=== PATIENT | male | born 1955 | race Caucasian/White ===

== ENCOUNTER 2022-09-27 06:50 | Day surgery (SDC) | payer MEDICARE ==
[~2022-09-27 06:50] MED LIST: LACTATED RINGERS 1,000 ML IV SCH; LIDOCAINE 1% (10MG/ML) FOR IV START INTRADERMA PRN
[2022-09-27 07:09] VITALS: TEMP 97.6
[2022-09-27] MEDS ORDERED: LIDOCAINE 2% INJ 20 MG/ML (2 ML VIAL) ONE (07:33)
[2022-09-27] MEDS ORDERED: PROPOFOL 10 MG/ML 20 ML VIAL IV ONE (07:33)
--- NOTE | 2022-09-27 08:09 | P.PCN ---
Date of Procedure: 09/27/22 Procedure(s) Performed: Brief history: Patient is a pleasant 67-year-old white male scheduled for an elective upper endoscopy as well as colonoscopy as a part of evaluation of persistent history of GERD and Hemoccult-positive stool Procedure performed: Esophagogastroduodenoscopy with biopsy Colonoscopy Preoperative diagnosis: Long-standing history of GERD Hemoccult-positive stool Anesthesia: MAC Procedure: After informed consent was obtained from the patient was brought into the endoscopy unit and IV sedation was administered by anesthesia under continuous monitoring. Initially upper endoscopy was done. The Olympus GF 160 video endoscope was inserted inserted into the mouth and esophagus intubated without any difficulty and was gradually advanced into the stomach and duodenum and carefully examined. The bulb and second part of the duodenum appeared normal. The scope was then withdrawn into the stomach adequately insufflated with air and upon careful examination the antrum had linear areas of erythema consistent with antral gastritis and biopsies were done from this area. Mucosa ofdy, cardia and fundus appeared normal. The scope was then withdrawn into the esophagus. moderate size hiatal hernia noted. The GE junction was located at 35 cm to the incisors. It appeared regular with no erythema erosions or ulcerations. Rest of the esophagus appeared normal. Patient tolerated the procedure well. At this time the patient continued to remain sedation. Initial digital rectal examination was normal. Olympus CF 160 video colonoscope was then inserted into the rectum and gradually advanced to the cecum without any difficulty. Careful examination was performed as the scope was gradually being withdrawn. The prep was excellent. The cecum, ascending colon, transverse colon, descending colon, sigmoid colon and rectum appeared normal. At her sigmoid diverticulosis. Retroflexion was performed in the rectum and no lesions were noted. Patient tolerated the procedure well. Impression: 1. Upper endoscopy revealed moderate size hiatal hernia and mild antral gastrit is 2. Colonoscopy revealed scattered sigmoid diverticulosis but no evidence of colorectal Recommendations: Findings of this examination were discussed with the patient as well as his family. He was advised to follow with the biopsy results. Continue with omeprazole 20 mg daily and follow antireflux measures. Recommend repeat screening colonoscopy in 10 years.
[2022-09-27 08:31] VITALS: BP 141/90; PULSE 75; RESP 16
== END 2022-09-27 08:47 | disposition home or self-care (01) ==
LOC: ORWHC2ENDO 06:50
PROVIDERS: ATTEND Internal Medicine Gastroenterology
DX: K29.50 Unspecified chronic gastritis without bleeding (principal); K57.30 Diverticulosis of large intestine without perforation or abscess without bleeding; K44.9 Diaphragmatic hernia without obstruction or gangrene; I10 Essential (primary) hypertension; K21.9 Gastro-esophageal reflux disease without esophagitis; Z88.0 Allergy status to penicillin; Z88.8 Allergy status to other drugs, medicaments and biological substances; Z79.899 Other long term (current) drug therapy
CPT/HCPCS: 88305; 43239; J2704; J2001; G0121; 45378

== ENCOUNTER 2023-03-05 13:52 | Inpatient (IN) | payer MEDICARE ==
--- NOTE | 2023-03-05 15:02 | ED ---
General Adult HPI - General Source: patient, RN notes reviewed, old records reviewed Mode of arrival: wheelchair Limitations: no limitations <Wilton Cool - Last Filed: 03/05/23 16:01> - History of Present Illness -: hour(s) Location: chest Radiation: non-radiation Severity scale (1-10): 4 Quality: aching Consistency: constant Improves with: none Worsens with: none Associated Symptoms: confusion, diaphoresis, shortness of breath, syncope, weakness Treatments Prior to Arrival: none <Johann De Jesus - Last Filed: 03/13/23 00:40> - General Chief complaint: Shortness of Breath Stated complaint: Enlarge Heart,sent from Urgent Care Time Seen by Provider: 03/05/23 13:58 - History of Present Illness Initial comments: Patient is a 67-year-old male who presents emergency department over concern for dyspnea. Patient is been having progressively worsening shortness of breath over the last week. Has a history of microcytic anemia. Denies any cardiac history. Has a history of hypertension. Denies any chest pain, abdominal pain, nausea, vomiting, fevers. Has no urinary complaints. Denies any hematemesis. Denies any bleeding of any sorts. States he has been having normal bowel movements at a light brown in color with no blood or melena. No dark black tarry stools. Endorse's mild increased lower extremity edema. Patient chronically sleeps somewhat sitting up at an angle without any acute change. D enies PND. Is not on blood thinners. No recent long distance travel. No significant cough. No other acute complaints at this time. Presents for evaluation after originally presenting to urgent care. Was told he has an enlarged cardiac silhouette. (Wilton Cool) 67 male to the emergency department for evaluation of exertional dyspnea. Patient still with significant shortness of breath is minimal activity here in the ER (Johann De Jesus) - Related Data Home Medications Medication Instructions Recorded Confirmed Valsartan/Hydrochlorothiazide 1 tab PO DAILY 09/26/22 03/05/23 [Valsartan-Hctz 320-25 mg Tab] Omeprazole 20 mg PO DAILY@1600 03/05/23 03/05/23 Previous Rx's Medication Instructions Recorded Colchicine [Colcrys] 0.6 mg PO BID #60 each 03/10/23 Thiamine [Vitamin B-1] 100 mg PO DAILY #30 tablet 03/10/23 Allergies Allergy/AdvReac Type Severity Reaction Status Date / Time Penicillins Allergy rash and Verified 03/07/23 13:22 swelling Tetracyclines Allergy rash and Verified 03/07/23 13:22 swelling Review of Systems ROS Other: All systems not noted in ROS Statement are negative. <Wilton Cool - Last Filed: 03/05/23 16:01> ROS Other: All systems not noted in ROS Statement are negative. <Johann De Jesus - Last Filed: 03/13/23 00:40> ROS Statement: Those systems with pertinent positive or pertinent negative responses have been documented in the HPI. Review of Systems: CONST: Denies fever EYES: Denies blurry vision ENT: Denies nasal congestion C/V: Denies Chest pain RESP: Endorses dyspnea GI: Denies abdominal pain : Denies dysuria SKIN: Denies rash. MSK: Denies joint pain. NEURO: Denies headache (Wilton Cool) Past Medical History Past Medical History: GERD/Reflux, Hypertension Additional Past Medical History / Comment(s): recent SOB with exertion. recent stress test will see [facility] medical services coordinator. long standing raspy voice History of Any Multi-Drug Resistant Organisms: None Reported Additional Past Surgical History / Comment(s): colonoscopy, rt rotator cuff 2015 surgery. oral surgery Past Anesthesia/Blood Transfusion Reactions: No Reported Reaction Past Psychological History: No Psychological Hx Reported Smoking Status: Former smoker Past Alcohol Use History: Occasional Past Drug Use History: None Reported - Past Family History Father Family Medical History: Cancer Additional Family Medical History / Comment(s): throat cancer <Wilton Cool - Last Filed: 03/05/23 16:01> - Past Family History Mother Additional Family Medical History / Comment(s): "Leaky valve" <Johann De Jesus - Last Filed: 03/13/23 00:40> General Exam Limitations: no limitations <Wilton Cool - Last Filed: 03/05/23 16:01> General appearance: alert, in no apparent distress, anxious Head exam: Present: atraumatic, normocephalic, normal inspection Eye exam: Present: normal appearance, PERRL, EOMI. Absent: scleral icterus, conjunctival injection, periorbital swelling ENT exam: Present: normal exam, mucous membranes moist Neck exam: Present: normal inspection. Absent: tenderness, meningismus, lymphadenopathy Respiratory exam: Present: normal lung sounds bilaterally. Absent: respiratory distress, wheezes, rales, rhonchi, stridor Cardiovascular Exam: Present: regular rate, normal rhythm, normal heart sounds. Absent: systolic murmur, diastolic murmur, rubs, gallop, clicks GI/Abdominal exam: Present: soft, normal bowel sounds. Absent: distended, tenderness, guarding, rebound, rigid Extremities exam: Present: normal inspection, full ROM, normal capillary refill. Absent: tenderness, pedal edema, joint swelling, calf tenderness Back exam: Present: normal inspection Neurological exam: Present: alert, oriented X3, CN II-XII intact Psychiatric exam: Present: normal affect, normal mood Skin exam: Present: warm, dry, intact, normal color. Absent: rash <Johann De Jesus - Last Filed: 03/13/23 00:40> - General Exam Comments Initial Comments: General: Appears in no acute distress. HEAD: Normal with no signs of head trauma. EYES: PERRLA, EOMI, conjunctiva normal, no discharge. Pupils are 3 mm equal bilaterally. ENT: Hearing grossly intact, normal oropharynx. RESPIRATORY: Clear breath sounds bilaterally. No wheezes, rales, or rhonchi. C/V: Regular rate and rhythm. S1 and S2 auscultated, mild symmetrical bilateral lower extremity pitting edema, peripheral pulses 2+ and intact throughout ABD: Abd is soft, nontender, nondistended EXT: Normal range of motion, no obvious deformity SKIN: No rashes or lesions observed on exposed skin. Somewhat pale. NEURO: Alert and oriented 4. (Wilton Cool) Course <Johann De Jesus - Last Filed: 03/13/23 00:40> Vital Signs 03/05/23 03/05/23 03/05/23 13:56 14:22 16:32 Temperature 97.6 F Pulse Rate 77 76 Respiratory 18 20 18 Rate Blood Pressure 126/80 146/91 O2 Sat by Pulse 98 96 Oximetry 03/05/23 03/05/23 17:36 18:17 Temperature 98.2 F Pulse Rate 78 Respiratory 18 Rate Blood Pressure 156/92 O2 Sat by Pulse Oximetry - Reevaluation(s) Reevaluation #1: 03/05/23 17:51 Medical record is reviewed (Johann De Jesus) Reevaluation #2: 03/05/23 17:51 Patient symptoms unchanged here in the ER still short of breath even when going to the bathroom (Johann De Jesus) Reevaluation #3: 03/05/23 17:51 Results and questions answered (Johann De Jesus) Reevaluation #4: Differential Dyspnea: Coronary syndrome, arrhythmia, tamponade, asthma, COPD, pulmonary embolism, pneumonia, pneumothorax, pulmonary effusion, anaphylaxis, diabetic ketoacidosis, flailed chest, pulmonary contusion, diaphragmatic rupture, anemia, neuromuscular, this is not meant to be an all-inclusive list. Differential Chest Pain: Stable Angina, Unstable Angina, STEMI, NSTEMI Aortic Dissection, Pneumothorax, M usculoskeletal, Esophageal Spasm GERD, Cholecystitis, Pancreatitis, Zoster, this is not meant to be an all-inclusive list. (Johann De Jesus) - Consultations Consultation #1: Spoke with sound who agrees to admit this patient (Johann De Jesus) Medical Decision Making - Lab Data Result diagrams: 03/05/23 14:50 03/05/23 14:50 - EKG Data -: EKG Interpreted by Mo <Wilton Cool - Last Filed: 03/05/23 16:01> - Lab Data Result diagrams: 03/09/23 08:11 03/08/23 08:13 - EKG Data -: EKG Interpreted by Me - Radiology Data Radiology results: report reviewed (CT angiogram chest to today which is he is positive for pleural effusion and pericardial effusion interpreted by me), image reviewed <Johann De Jesus - Last Filed: 03/13/23 00:40> - Medical Decision Making Was pt. sent in by a medical professional or institution (, PA, TRANSFORMATION COACH, urgent care, hospital, or half-way...) When possible be specific @ -No Did you speak to anyone other than the patient for history (EMS, parent, family, police, friend...)? What history was obtained from this source @ -No Did you review nursing and triage notes (agree or disagree)? Why? @ -I reviewed and agree with nursing and triage notes Were old charts reviewed (outside hosp., previous admission, EMS record, old EKG, old radiological studies, urgent care reports/EKG's, half-way records)? Report findings @ -No old charts for review Differential Diagnosis (chest pain, altered mental status, abdominal pain women, abdominal pain men, vaginal bleeding, weakness, fever, dyspnea, syncope, headache, dizziness, GI bleed, back pain, seizure, CVA, palpatations, mental health, musculoskeletal)? @ -Differential Dyspnea: Coronary syndrome, arrhythmia, tamponade, asthma, COPD, pulmonary embolism, pneumonia, pneumothorax, pulmonary effusion, anaphylaxis, diabetic ketoacidosis, flailed chest, pulmonary contusion, diaphragmatic rupture, anemia, neuromuscular, this is not meant to be an all-inclusive list. EKG interpreted by me (3pts min.). @ -As above X-rays interpreted by me (1pt min.). @ -Chest x-ray reveals cardiomegaly CT interpreted by me (1pt min.). @ -pending U/S interpreted by me (1pt. min.). @ -None done What testing was considered but not performed or refused? (CT, X-rays, U/S, labs)? Why? @ -None What meds were considered but not given or refused? Why? @ -None Did you discuss the management of the patient with other professionals (professionals i.e. , PA, TRANSFORMATION COACH, lab, RT, psych nurse, clinical social worker, [facility] shift lead, teacher, flight communications officer, disability case manager)? Give summary @ -No Was smoking cessation discussed for >3mins.? @ -No Was critical care preformed (if so, how long)? @ -No Were there social determinants of health that impacted care today? How? (Homelessness, low income, unemployed, alcoholism, drug addiction, transportation, low edu. Level, literacy, decrease access to med. care, usp, rehab)? @ -No Was there de-escalation of care discussed even if they declined (Discuss DNR or withdrawal of care, Hospice)? DNR status @ -No What co-morbidities impacted this encounter? (DM, HTN, Smoking, COPD, CAD, Cancer, CVA, ARF, Chemo, Hep., AIDS, mental health diagnosis, sleep apnea, morbid obesity)? @ -None Was patient admitted / discharged? Hospital course, mention meds given and route, prescriptions, significant lab abnormalities, going to OR and other pertinent info. @ -Based on patient's presentation and physical exam, I'm concerned for possible cardiopulmonary etiology for his current symptoms. We will obtain cardio pulmonary labs. Chest x-ray, EKG as well. Patient was in agreement this plan. Has a history of anemia and he does appear somewhat pale. Unknown if this is acute. No evidence of GI bleeding at this time. He is not on blood thinners. Vital signs within acceptable limits at rest. No significant dyspnea at rest. Patient was in agreement this plan. EKG shows no signs of acute ischemia. Chest x-ray shows no significant acute cardiopulmonary process other than mild cardiomegaly.Patient's d-dimer returned elevated. Patient also has anemia with no no previous laboratory studies for comparison. Patient uncertain what his previous hemoglobin level was. His no GI bleeding complaints at this time. Troponin is indeterminate. BNP is within acceptable limits for his age. Remainder the labs within acceptable limits. I updated the patient. He is resting comfortably. We will obtain CT PE. He was in agreement this plan. Patient signed out to Dr. De Jesus Pending results of imaging. Undiagnosed new problem with uncertain prognosis? @ -No Drug Therapy requiring intensive monitoring for toxicity (Heparin, Nitro, Insulin, Cardizem)? @ -No Were any procedures done? @ -No (Wilton Cool) 67 male ER today who complains of With exertional dyspnea. Patient states he recently had a stress test with echocardiogram since then has had increasingly developing exertional dyspnea. Patient is found on computed tomography scan to have pleural effusion left with pericardial effusion moderate. Troponin leak. Patient will be admitted for cardiology evaluation and repeat ECHO (Johann De Jesus) - Lab Data Lab Results 03/05/23 03/05/23 03/05/23 Range/Units 14:50 14:50 14:50 WBC 6.7 (3.8-10.6) k/uL RBC 3.05 L (4.30-5.90) m/uL Hgb 8.9 L (13.0-17.5) gm/dL Hct 27.4 L (39.0-53.0) % MCV 89.8 (80.0-100.0) fL MCH 29.3 (25.0-35.0) pg MCHC 32.6 (31.0-37.0) g/dL RDW 14.3 (11.5-15.5) % Plt Count 361 (150-450) k/uL MPV 7.8 Neutrophils % 72 % Lymphocytes % 15 % Monocytes % 7 % Eosinophils % 4 % Basophils % 0 % Neutrophils # 4.8 (1.3-7.7) k/uL Lymphocytes # 1.0 (1.0-4.8) k/uL Monocytes # 0.4 (0-1.0) k/uL Eosinophils # 0.3 (0-0.7) k/uL Basophils # 0.0 (0-0.2) k/uL Hypochromasia Slight PT 12.5 (10.0-12.5) sec INR 1.2 H (<1.2) APTT 24.0 (22.0-30.0) sec D-Dimer 3.25 H (<0.60) mg/L FEU Sodium 135 L (137-145) mmol/L Potassium 3.8 (3.5-5.1) mmol/L Chloride 99 (98-107) mmol/L Carbon Dioxide 26 (22-30) mmol/L Anion Gap 10 mmol/L BUN 20 (9-20) mg/dL Creatinine 0.92 (0.66-1.25) mg/dL Est GFR (CKD-EPI)AfAm >90 (>60 ml/min/1.73 sqM) Est GFR (CKD-EPI)NonAf 87 (>60 ml/min/1.73 sqM) Glucose 108 H (74-99) mg/dL Calcium 8.9 (8.4-10.2) mg/dL Magnesium 2.3 (1.6-2.3) mg/dL Total Bilirubin 0.7 (0.2-1.3) mg/dL AST 24 (17-59) U/L ALT 25 (4-49) U/L Alkaline Phosphatase 63 (38-126) U/L Troponin I (0.000-0.034) ng/mL NT-Pro-B Natriuret Pep 399 pg/mL Total Protein 6.1 L (6.3-8.2) g/dL Albumin 3.4 L (3.5-5.0) g/dL Urine Color Urine Appearance (Clear) Urine pH (5.0-8.0) Ur Specific [place] (1.001-1.035) Urine Protein (Negative) Urine Glucose (UA) (Negative) Urine Ketones (Negative) Urine Blood (Negative) Urine Nitrite (Negative) Urine Bilirubin (Negative) Urine Urobilinogen (<2.0) mg/dL Ur Leukocyte Esterase (Negative) Influenza Type A (PCR) (Not Detectd) Influenza Type B (PCR) (Not Detectd) RSV (PCR) (Not Detectd) SARS-CoV-2 (PCR) (Not Detectd) 03/05/23 03/05/23 03/05/23 Range/Units 14:50 14:50 17:36 WBC (3.8-10.6) k/uL RBC (4.30-5.90) m/uL Hgb (13.0-17.5) gm/dL Hct (39.0-53.0) % MCV (80.0-100.0) fL MCH (25.0-35.0) pg MCHC (31.0-37.0) g/dL RDW (11.5-15.5) % Plt Count (150-450) k/uL MPV Neutrophils % % Lymphocytes % % Monocytes % % Eosinophils % % Basophils % % Neutrophils # (1.3-7.7) k/uL Lymphocytes # (1.0-4.8) k/uL Monocytes # (0-1.0) k/uL Eosinophils # (0-0.7) k/uL Basophils # (0-0.2) k/uL Hypochromasia PT (10.0-12.5) sec INR (<1.2) APTT (22.0-30.0) sec D-Dimer (<0.60) mg/L FEU Sodium (137-145) mmol/L Potassium (3.5-5.1) mmol/L Chloride (98-107) mmol/L Carbon Dioxide (22-30) mmol/L Anion Gap mmol/L BUN (9-20) mg/dL Creatinine (0.66-1.25) mg/dL Est GFR (CKD-EPI)AfAm (>60 ml/min/1.73 sqM) Est GFR (CKD-EPI)NonAf (>60 ml/min/1.73 sqM) Glucose (74-99) mg/dL Calcium (8.4-10.2) mg/dL Magnesium (1.6-2.3) mg/dL Total Bilirubin (0.2-1.3) mg/dL AST (17-59) U/L ALT (4-49) U/L Alkaline Phosphatase (38-126) U/L Troponin I 0.017 (0.000-0.034) ng/mL NT-Pro-B Natriuret Pep pg/mL Total Protein (6.3-8.2) g/dL Albumin (3.5-5.0) g/dL Urine Color Light Yellow Urine Appearance Clear (Clear) Urine pH 6.0 (5.0-8.0) Ur Specific [place] >1.050 H (1.001-1.035) Urine Protein Negative (Negative) Urine Glucose (UA) Negative (Negative) Urine Ketones Negative (Negative) Urine Blood Negative (Negative) Urine Nitrite Negative (Negative) Urine Bilirubin Negative (Negative) Urine Urobilinogen <2.0 (<2.0) mg/dL Ur Leukocyte Esterase Negative (Negative) Influenza Type A (PCR) Not Detected (Not Detectd) Influenza Type B (PCR) Not Detected (Not Detectd) RSV (PCR) Not Detected (Not Detectd) SARS-CoV-2 (PCR) Not Detected (Not Detectd) - EKG Data EKG Comments: 12-lead Electrocardiogram Interpretation Note EKG was reviewed and interpreted by myself. 12-lead ECG performed at 1455 is interpreted by me as revealing normal sinus rhythm at a rate of 71 beats per minute. English is normal. IL interval is 197 ms, QRS duration is 97 ms, QTc is 437 ms. Patient does have T-wave inversions in leads V2, V3 and somewhat in V4. R wave progression across the precordium was satisfactory. No prior EKGs for comparison. (Wilton Cool) Critical Care Time Critical Care Time: Yes Total Critical Care Time: 31 <Johann De Jesus - Last Filed: 03/13/23 00:40> Disposition <Wilton Cool - Last Filed: 03/05/23 16:01> Is patient prescribed a controlled substance at d/c from ED?: No Time of Disposition: 17:50 <Johann De Jesus - Last Filed: 03/13/23 00:40> Clinical Impression: Pleural effusion, left, Pericardial effusion, Exertional dyspnea Disposition: ADMITTED IP TO THIS HOSP Condition: Stable
--- NOTE | 2023-03-05 15:16 | XR ---
EXAMINATION TYPE: XR chest 2V DATE OF EXAM: 03/05/2023 3:06 PM CLINICAL INDICATION:Male, 67 years old with history of difficulty breathing. COMPARISON: None. TECHNIQUE: XR chest 2V Frontal and lateral views of the chest. FINDINGS: Lungs/Pleura: Trace left pleural effusion is identified. No evidence of pneumothorax. Pulmonary vascularity: Unremarkable. Heart/mediastinum: Mild cardiomegaly Musculoskeletal: No acute osseous pathology. IMPRESSION: Mild cardiomegaly with trace left pleural effusion.
[2023-03-05 15:22] LABS: Basophils % (A) 0 %; Eosinophils # (A) 0.3 k/uL (0-0.7); Eosinophils % (A) 4 %; HCT 27.4 % (39.0-53.0); HGB 8.9 gm/dL (13.0-17.5); Hypochromasia Slight; Lymphocytes % (A) 15 %; MCH 29.3 pg (25.0-35.0); MCHC 32.6 g/dL (31.0-37.0); MCV 89.8 fL (80.0-100.0); Mean Platelet Volume 7.8; Monocytes # (A) 0.4 k/uL (0-1.0); Monocytes % (A) 7 %; Neutrophils # (A) 4.8 k/uL (1.3-7.7); Neutrophils % (A) 72 %; Platelet Count 361 k/uL (150-450); RBC 3.05 m/uL (4.30-5.90); RDW 14.3 % (11.5-15.5); WBC 6.7 k/uL (3.8-10.6)
[2023-03-05 15:23] LABS: ALT 25 U/L (4-49); AST 24 U/L (17-59); African American GFR (CKD) >90 (>60 ml/min/1.73 sqM); Albumin 3.4 g/dL (3.5-5.0); Alkaline Phosphatase 63 U/L (38-126); Anion Gap 10 mmol/L; Blood Urea Nitrogen 20 mg/dL (9-20); Calcium 8.9 mg/dL (8.4-10.2); Carbon Dioxide 26 mmol/L (22-30); Chloride 99 mmol/L (98-107); Glucose 108 mg/dL (74-99); Magnesium 2.3 mg/dL (1.6-2.3); Non-African American GFR(CKD) 87 (>60 ml/min/1.73 sqM); Potassium 3.8 mmol/L (3.5-5.1); Sodium 135 mmol/L (137-145); Total Bilirubin 0.7 mg/dL (0.2-1.3); Total Protein 6.1 g/dL (6.3-8.2)
[2023-03-05 15:31] LABS: NT-Pro-B-Type Natriuretic Pept 399 pg/mL
[2023-03-05 15:33] LABS: INR 1.2 (<1.2); Prothrombin Time 12.5 sec (10.0-12.5)
--- NOTE | 2023-03-05 16:37 | CT ---
EXAMINATION TYPE: CT chest angio for PE CT DLP: 549.1 mGycm, Automated exposure control for dose reduction was used. DATE OF EXAM: 03/05/2023 4:06 PM COMPARISON: Chest radiograph from same day. Multiple CTs of the chest with most recent on . CLINICAL INDICATION:Male, 67 years old with history of elevated dimer, eval for PE; SOB on exertion, high d-dimer. TECHNIQUE/CONTRAST: CTA scan of the thorax is performed with IV Contrast, patient injected with 100 cc mL of Isovue 370, MIP images are created and reviewed these are created on a separate workstation.. FINDINGS: Pulmonary Artery: There is no evidence for a filling defect within the pulmonary vasculature to sugge st acute pulmonary embolism. The pulmonary artery is of normal size. Lungs/Pleura: Trace left pleural effusion. No evidence of pneumothorax Airway: Patent Heart: Moderate-sized pericardial effusion. Vasculature: No evidence of aortic aneurysm. Mediastinum: No gross evidence of adenopathy. Musculoskeletal: Mild degenerative disc disease changes are present throughout the thoracolumbar spin e. Soft Tissues: Unremarkable. Lower neck: No significant findings. Upper Abdomen: Small hiatal hernia.. IMPRESSION: 1. No evidence of pulmonary embolism. 2. Moderate-sized pericardial effusion. 3. Trace left pleural effusion.
[2023-03-05] MEDS ORDERED: NALOXONE 0.4 MG/ML 1 ML VIAL IV PRN (17:49)
[2023-03-05] MEDS ORDERED: MORPHINE SULFATE 4 MG/ML SYRINGE IV PRN (17:49)
[2023-03-05] MEDS ORDERED: ONDANSETRON 4 MG/2 ML VIAL IVP PRN (17:49)
[2023-03-05 18:03] LABS: Appearance,Urine Clear (Clear); Bilirubin,Urine Negative (Negative); Blood,Urine Negative (Negative); Color,Urine Light Yellow; Glucose,Urine (UA) Negative (Negative); Ketones,Urine Negative (Negative); Leukocyte Esterase,Urine Negative (Negative); Nitrite,Urine Negative (Negative); Protein,Urine Negative (Negative); Urobilinogen,Urine <2.0 mg/dL (<2.0)
[2023-03-05 18:43] LABS: Specific Gravity,Urine >1.050 (1.001-1.035)
[2023-03-05] MEDS: SODIUM CHLORIDE 0.9% 1,000 ML IV SCH (23:54)
--- NOTE | 2023-03-06 04:57 | P.HPIM ---
History of Present Illness H&P Date: 03/05/23 Chief Complaint: shortness of breath 67 year old male with hypertension patient coming in for progressive shortness of breath over the past 1 week. he reports exertional dyspnea which is new to him with moderate exertion. he denies any recent URI , or cardiac history . initially he thought he has a cold, but denies any associated fever , chills, sore throat, runny nose, or cough. he denies any chest pain , fever, chills. abd pain , nausea or vomiting. he denies orthopnea , as he does not normally sleep flat , denies PNDs. denies leg edema . patient denies cardiac history , and he has had EKG and stress test in past which were normal . he started feeling better monday, but then his symptoms returned on and monday, he went to an urgent care, who did an CXR and found to have enlarged heart and they sent him to the ED> he denies any history of blood clots, recent travel or hospital stay . he is not on aspirin or blood thinners he denies tobacco smoking, illicit drugs or heavy alcohol review of systems Pertinent positives as noted in HPI. All other systems were reviewed and are negative on exam Constitutional: No acute distress, conversant, pleasant Eyes: Anicteric sclerae, moist conjunctiva, Pupils equal round reactive to light ENMT: NC/AT Oropharynx clear, no erythema, or exudates Neck: Supple, no masses, or JVD No carotid bruits No thyromegaly Lungs: Clear to auscultation Clear to percussion Normal respiratory effort, no accessory muscle use Cardiovascular: Heart regular in rate and rhythm, No murmurs, gallops, or rubs No peripheral edema Abdominal: Soft Nontender, no guarding, rebound or rigidity Abdomen moving with respiration Normoactive bowel sounds No hepatomegaly, No splenomegaly No palpable mass No abdominal wall hernia noted Skin: Normal temperature, tone, texture, turgor No induration No subcutaneous nodules No rash, lesions No ulcers Extremities: No digital cyanosis No clubbing Pedal pulses intact and symmetrical Radial pulses intact and symmetrical No calf tenderness Psychiatric: Alert and oriented to person, place and time Appropriate affect fair judgement Neuro Muscles Strength 5/5 in all 4 extremities Sensation to light touch grossly present throughout Cranial nerves II-XII grossly intact Lymphatics: no palpable cervical or supraclavicular lymph nodes assessment and plan 67 year old male with hypertension , presenting for exertional dyspnea , new onset, no cardiac history , I discussed the case with ED doc and I accepted the admission for cardiac workup with anticpated length of stay < 2 midnights exertional dyspnea rule out cardiac causes check echocardiogram EKG no acute findings CXR showed mild cardiomegally with left pleural effusion CTA of chest showd no evidence of plumonary embolism, showed moderate sized pericardial effusion , and trace left pleural effusion blood work showed Anemia Hgb 8.9 he denies any GI bleeding WBC 6.7 unremarkable D dimer elevated 3.25 , CTA no acute PE renal function unremarkable Na 135, K 3.8 BUN 20 cr 0.9 trops negative X2 acute respiratory viral panel negative for influenza, RSV and covid hypertension , blood pressure controlled resume home medication , valsartan full code DVT PPX heparin sc tid 5000 units Past Medical History Past Medical History: GERD/Reflux, Hypertension Additional Past Medical History / Comment(s): recent SOB with exertion. 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 long standing raspy voice History of Any Multi-Drug Resistant Organisms: None Reported Additional Past Surgical History / Comment(s): colonoscopy, rt rotator cuff 2015 surgery. oral surgery Past Anesthesia/Blood Transfusion Reactions: No Reported Reaction Past Psychological History: No Psychological Hx Reported Smoking Status: Former smoker Past Alcohol Use History: Occasional Additional Past Alcohol Use History / Comment(s): quit a long time ago. < 1ppd. [place] 3-4 a day Past Drug Use History: None Reported - Past Family History Father Family Medical History: Cancer Additional Family Medical History / Comment(s): throat cancer Medications and Allergies Home Medications Medication Instructions Recorded Confirmed Type Valsartan/Hydrochlorothiazide 1 tab PO DAILY 09/26/22 03/05/23 History [Valsartan-Hctz 320-25 mg Tab] Omeprazole 20 mg PO DAILY@1600 03/05/23 03/05/23 History Allergies Allergy/AdvReac Type Severity Reaction Status Date / Time Penicillins Allergy rash and Verified 03/05/23 16:11 swelling Tetracyclines Allergy rash and Verified 03/05/23 16:11 swelling Physical Exam Vitals: Vital Signs Temp Pulse Pulse Resp BP BP Pulse Ox 03/05/23 23:15 99.4 F 85 18 134/77 95 03/05/23 20:00 98.5 F 86 16 134/83 97 03/05/23 18:45 98.3 F 88 16 144/92 96 03/05/23 18:17 98.2 F 03/05/23 17:36 78 18 156/92 03/05/23 16:32 76 18 146/91 96 03/05/23 14:22 20 03/05/23 13:56 97.6 F 77 18 126/80 98 Intake and Output 03/05/23 03/05/23 03/06/23 14:59 22:59 06:59 Other: Voiding Method Toilet Toilet # Voids 1 Weight 101.605 kg 101.605 kg Results CBC & Chem 7: 03/05/23 14:50 03/05/23 14:50 Labs: Abnormal Lab Results - Last 24 Hours (Table) 03/05/23 03/05/23 03/05/23 Range/Units 14:50 14:50 14:50 RBC 3.05 L (4.30-5.90) m/uL Hgb 8.9 L (13.0-17.5) gm/dL Hct 27.4 L (39.0-53.0) % INR 1.2 H (<1.2) D-Dimer 3.25 H (<0.60) mg/L FEU Sodium 135 L (137-145) mmol/L Glucose 108 H (74-99) mg/dL Total Protein 6.1 L (6.3-8.2) g/dL Albumin 3.4 L (3.5-5.0) g/dL Ur Specific [place] (1.001-1.035) 03/05/23 Range/Units 17:36 RBC (4.30-5.90) m/uL Hgb (13.0-17.5) gm/dL Hct (39.0-53.0) % INR (<1.2) D-Dimer (<0.60) mg/L FEU Sodium (137-145) mmol/L Glucose (74-99) mg/dL Total Protein (6.3-8.2) g/dL Albumin (3.5-5.0) g/dL Ur Specific [place] >1.050 H (1.001-1.035) Thrombosis Risk Factor Assmnt - Choose All That Apply Any of the Below Risk Factors Present?: No Each Risk Factor Represents 2 Points: Age 61-74 years Other congenital or acquired thrombophilia - If yes, enter type in comment: No Thrombosis Risk Factor Assessment Total Risk Factor Score: 2 Thrombosis Risk Factor Assessment Level: Low Risk
[2023-03-06 08:09] LABS: Basophils % (A) 0 %; Eosinophils # (A) 0.4 k/uL (0-0.7); Eosinophils % (A) 6 %; HCT 26.9 % (39.0-53.0); HGB 8.6 gm/dL (13.0-17.5); Hypochromasia Slight; Lymphocytes # (A) 1.2 k/uL (1.0-4.8); Lymphocytes % (A) 17 %; MCH 28.7 pg (25.0-35.0); MCHC 31.7 g/dL (31.0-37.0); MCV 90.3 fL (80.0-100.0); Mean Platelet Volume 8.8; Monocytes # (A) 0.6 k/uL (0-1.0); Monocytes % (A) 9 %; Neutrophils # (A) 4.5 k/uL (1.3-7.7); Neutrophils % (A) 67 %; Platelet Count 355 k/uL (150-450); RBC 2.98 m/uL (4.30-5.90); RDW 14.4 % (11.5-15.5); WBC 6.8 k/uL (3.8-10.6)
[2023-03-06 08:46] LABS: ALT 22 U/L (4-49); AST 23 U/L (17-59); African American GFR (CKD) >90 (>60 ml/min/1.73 sqM); Albumin 3.1 g/dL (3.5-5.0); Alkaline Phosphatase 59 U/L (38-126); Anion Gap 11 mmol/L; Blood Urea Nitrogen 17 mg/dL (9-20); Calcium 8.7 mg/dL (8.4-10.2); Carbon Dioxide 25 mmol/L (22-30); Chloride 100 mmol/L (98-107); Glucose 109 mg/dL (74-99); Magnesium 2.2 mg/dL (1.6-2.3); Non-African American GFR(CKD) >90 (>60 ml/min/1.73 sqM); Phosphorus 3.5 mg/dL (2.5-4.5); Potassium 3.7 mmol/L (3.5-5.1); Sodium 136 mmol/L (137-145); Total Bilirubin 0.5 mg/dL (0.2-1.3); Total Protein 5.9 g/dL (6.3-8.2)
[2023-03-06] MEDS: HEPARIN SODIUM,PORCINE 5,000 UNIT/ML 1 ML VIAL SQ SCH ×2 (08:54→16:50)
[2023-03-06] MEDS: VALSARTAN 160 MG TAB PO SCH (08:54)
[2023-03-06] MEDS: hydroCHLOROthiazide 25 MG TAB PO SCH (08:54)
[2023-03-06] MEDS: COLCHICINE 0.6 MG EACH PO SCH ×2 (10:36→21:45)
[2023-03-06] MEDS: INDOMETHACIN 25 MG CAP PO SCH ×3 (10:36→21:45)
--- NOTE | 2023-03-06 11:00 | P.CRDCN ---
History of Present Illness History of present illness: HISTORY OF PRESENT ILLNESS: This is a 67-year-old male with a past medical history significant for GERD, hypertension, and former nicotine dependence. Patient follows in the office with Dr. Maldonado. We have been asked to see the patient in consultation for pericardial effusion. Patient examined at the bedside. Patient's spouse present. Patient presented to urgent care yesterday with a chief complaint of shortness of breath. He was instructed to come to the emergency room for further evaluation after having an abnormal chest x-ray revealing cardiomegaly. The patient states he has been having shortness of breath since October however did not affect his basic activities. He did have a stress test performed in October 2022 at [facility] which was negative for ischemia. He states over the past week he has been so short of breath with exertion to the point where he is not able to do much other than sit and rest. He denies having any chest pain or pressure. He denies any previous illness or URI. Denies known history of cancer. He is a nonsmoker. He reports daily alcohol use of 3-5 beers a day. He denies any drug use including marijuana. The patient was also found to be anemic with a hemoglobin of 8.6. No previous hemoglobin available in the EMR. Patient does report he has a history of anemia. He is unsure what his hemoglobin typically runs. The patient did have upper and lower endoscopy in September [address] Maldonado revealing moderate sized hiatal hernia and mild antral gastritis. Colonoscopy revealed scattered sigmoid diverticulosis. * EKG reveals sinus mechanism with T-wave inversions anteriorly. * Chest xray mild cardiomegaly with trace left pleural effusion * Chest CTA: No evidence of pulmonary embolism. Moderate sized pericardial effusion. Trace left pleural effusion. * Laboratory data: WBC 6.8. Hemoglobin 8.6. Platelet count 355. Sodium 135. Potassium 3.8. BUN 20. Creatinine 0.92. Troponin negative 3. ProBNP 399. * Current home cardiac medications include valsartan-hydrochlorothiazide 320- 25mg daily * Most recent echocardiogram obtained in January 2023 in the office revealed ejection fraction 55%, trace aortic regurgitation, mild mitral regurgitation, mild to moderate tricuspid regurgitation, with small pericardial effusion REVIEW OF SYSTEMS: At the time of my exam: CONSTITUTIONAL: Denies fever or chills. HEENT: Denies blurred vision, vision changes, or eye pain. Denies hemoptysis CARDIOVASCULAR: Denies chest pain. Denies orthopnea. Denies PND. Denies palpitations RESPIRATORY: Denies shortness of breath. GASTROINTESTINAL: Denies abdominal pain. Denies nausea or vomiting. HEMATOLOGIC: Denies bleeding disorders. GENITOURINARY: Denies any blood in urine. SKIN: Denies pruitis. Denies rash. PHYSICAL EXAM: VITAL SIGNS: Reviewed. GENERAL: Well-developed in no acute distress. HEENT: Head is normocephalic. Pupils are equal, round. Sclerae anicteric. Mucous membranes of the mouth are moist. Neck supple. No JVD or thyromegaly LUNGS: Respirations even and unlabored. Lungs essentially clear to auscultation bilaterally. HEART: Regular rate and rhythm. S1 and S2 heard. Pericardial rub noted. ABDOMEN: Soft. Nondistended. Nontender. EXTREMITIES: Normal range of motion. No clubbing or cyanosis. Peripheral pulses intact. No lower extremity edema NEUROLOGIC: Awake and alert. Oriented x 3. ASSESSMENT: Exertional dyspnea Pericardial effusion Hypertension Anemia, baseline unknown, status post upper and lower endoscopy, September 2022, as above GERD Former nicotine dependence Daily alcohol use PLAN: Resume home cardiac medications Obtain echocardiogram to better assess pericardial effusion Begin colchicine and indomethacin. Continue Protonix. Recommend further workup of anemia. Will defer to internal medicine. Further recommendations pending patient's course Nurse practitioner note has been reviewed by physician. Signing provider agrees with the documented findings, assessment, and plan of care. Past Medical History Past Medical History: GERD/Reflux, Hypertension Additional Past Medical History / Comment(s): recent SOB with exertion. 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 long standing raspy voice History of Any Multi-Drug Resistant Organisms: None Reported Additional Past Surgical History / Comment(s): colonoscopy, rt rotator cuff 2015 surgery. oral surgery Past Anesthesia/Blood Transfusion Reactions: No Reported Reaction Past Psychological History: No Psychological Hx Reported Smoking Status: Former smoker Past Alcohol Use History: Occasional Additional Past Alcohol Use History / Comment(s): quit a long time ago. < 1ppd. [place] 3-4 a day Past Drug Use History: None Reported - Past Family History Father Family Medical History: Cancer Additional Family Medical History / Comment(s): throat cancer Mother Additional Family Medical History / Comment(s): "Leaky valve" Medications and Allergies Home Medications Medication Instructions Recorded Confirmed Type Valsartan/Hydrochlorothiazide 1 tab PO DAILY 09/26/22 03/05/23 History [Valsartan-Hctz 320-25 mg Tab] Omeprazole 20 mg PO DAILY@1600 03/05/23 03/05/23 History Allergies Allergy/AdvReac Type Severity Reaction Status Date / Time Penicillins Allergy rash and Verified 03/05/23 16:11 swelling Tetracyclines Allergy rash and Verified 03/05/23 16:11 swelling Physical Exam Vitals: Vital Signs Temp Pulse Pulse Resp BP BP Pulse Ox 03/06/23 04:40 99.2 F 81 16 125/71 95 03/05/23 23:15 99.4 F 85 18 134/77 95 03/05/23 20:00 98.5 F 86 16 134/83 97 03/05/23 18:45 98.3 F 88 16 144/92 96 03/05/23 18:17 98.2 F 03/05/23 17:36 78 18 156/92 03/05/23 16:32 76 18 146/91 96 03/05/23 14:22 20 03/05/23 13:56 97.6 F 77 18 126/80 98 Intake and Output 03/05/23 03/06/23 03/06/23 22:59 06:59 14:59 Other: Voiding Method Toilet Toilet # Voids 1 Weight 101.605 kg Results 03/06/23 07:31 03/06/23 07:31 Cardiac Enzymes 03/05/23 03/05/23 03/05/23 Range/Units 14:50 14:50 18:45 AST 24 (17-59) U/L Troponin I 0.017 0.018 (0.000-0.034) ng/mL 03/05/23 Range/Units 21:06 AST (17-59) U/L Troponin I 0.020 (0.000-0.034) ng/mL Coagulation 03/05/23 Range/Units 14:50 PT 12.5 (10.0-12.5) sec APTT 24.0 (22.0-30.0) sec CBC 03/05/23 03/06/23 Range/Units 14:50 07:31 WBC 6.7 6.8 (3.8-10.6) k/uL RBC 3.05 L 2.98 L (4.30-5.90) m/uL Hgb 8.9 L 8.6 L (13.0-17.5) gm/dL Hct 27.4 L 26.9 L (39.0-53.0) % Plt Count 361 355 (150-450) k/uL Comprehensive Metabolic Panel 03/05/23 Range/Units 14:50 Sodium 135 L (137-145) mmol/L Potassium 3.8 (3.5-5.1) mmol/L Chloride 99 (98-107) mmol/L Carbon Dioxide 26 (22-30) mmol/L BUN 20 (9-20) mg/dL Creatinine 0.92 (0.66-1.25) mg/dL Glucose 108 H (74-99) mg/dL Calcium 8.9 (8.4-10.2) mg/dL AST 24 (17-59) U/L ALT 25 (4-49) U/L Alkaline Phosphatase 63 (38-126) U/L Total Protein 6.1 L (6.3-8.2) g/dL Albumin 3.4 L (3.5-5.0) g/dL Current Medications Generic Name Dose Route Start Last Admin Trade Name Freq PRN Reason Stop Dose Admin Heparin Sodium (Porcine) 5,000 unit 03/06/23 08:00 Heparin Sodium,Porcine 5,000 Unit/Ml 1 Ml Vial SQ Q8HR GILDA Hydrochlorothiazide 25 mg 03/06/23 09:00 Hydrochlorothiazide 25 Mg Tab PO DAILY GILDA Sodium Chloride 1,000 mls @ 130 mls/hr 03/05/23 18:00 03/05/23 23:54 Saline 0.9% IV Not Given .[id number] GILDA Morphine Sulfate 4 mg 03/05/23 17:49 Morphine Sulfate 4 Mg/Ml Syringe IV Q4HR PRN Severe Pain (Scale 7 to 10) Naloxone HCl 0.2 mg 03/05/23 17:49 Naloxone 0.4 Mg/Ml 1 Ml Vial IV Q2M PRN Opioid Reversal Ondansetron HCl 4 mg 03/05/23 17:49 Ondansetron 4 Mg/2 Ml Vial IVP Q8HR PRN Nausea And Vomiting Pantoprazole Sodium 40 mg 03/06/23 16:00 Pantoprazole 40 Mg Tablet PO DAILY@1600 GILDA Valsartan 320 mg 03/06/23 09:00 Valsartan 160 Mg Tab PO DAILY GILDA Intake and Output 03/05/23 03/06/23 03/06/23 22:59 06:59 14:59 Other: Voiding Method Toilet Toilet # Voids 1 Weight 101.605 kg 03/06/23 07:31 03/05/23 14:50
--- NOTE | 2023-03-06 11:57 | P.GSCN ---
History of Present Illness Consult date: 03/06/23 Reason for Consult: Pericardial effusion Requesting physician: Mindy Restrepo History of present illness: This is a 67-year-old gentleman who follows outpatient with Dr. Herrera for primary care and Dr. Maldonado for cardiology. He has a previous medical history of hypertension, GERD, questionable sleep apnea, daily EtOH use, and previous tobacco dependence. The patient reports he had a stress test in October by Dr. Nav foote related to shortness of breath. Apparently he has been short of breath for a while, however it has become quite a bit more significant over the last week and he is unable to do much activity without being significantly short of breath. He is also had some chest pressure. He presented to an urgent care clinic yesterday, chest x-ray reportedly revealed cardiomegaly, and the patient was encouraged to come to [facility] emergency room for evaluation and treatment. Lab work revealed anemia with hemoglobin 8.9, d-dimer was elevated at 3.25, creatinine 0.82, troponins were negative 3, and all serology was negative. Chest x-ray demonstrated mild cardiomegaly with trace left pleural effusion. Chest CTA was completed demonstrating no pulmonary embolism, but there was evidence of a moderate-sized pericardial effusion. The patient was admitted for evaluation and treatment with consultation placed to cardiology. A transthoracic echocardiogram was completed today, report not available, per Dr. Restrepo the patient has a large pericardial effusion. He was started on colchicine and consultation was placed to cardiothoracic surgery for recommendations regarding pericardial window. Review of Systems Review of systems was completed and was negative except as noted - Cardiovascular Reports as per HPI, Reports chest pain, Reports decreased exercise tolerance, Reports shortness of breath - Respiratory Reports as per HPI, Reports dyspnea Past Medical History Past Medical History: GERD/Reflux, Hypertension Additional Past Medical History / Comment(s): recent SOB with exertion. 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 long standing raspy voice History of Any Multi-Drug Resistant Organisms: None Reported Past Surgical History: Orthopedic Surgery Additional Past Surgical History / Comment(s): colonoscopy, rt rotator cuff 2015 surgery. oral surgery Past Anesthesia/Blood Transfusion Reactions: No Reported Reaction Past Psychological History: No Psychological Hx Reported Smoking Status: Former smoker Past Alcohol Use History: Daily Additional Past Alcohol Use History / Comment(s): quit a long time ago. < 1ppd. [place] 3-4 a day Past Drug Use History: None Reported - Past Family History Father Family Medical History: Cancer Additional Family Medical History / Comment(s): throat cancer Mother Additional Family Medical History / Comment(s): "Leaky valve" Medications and Allergies Home Medications Medication Instructions Recorded Confirmed Type Valsartan/Hydrochlorothiazide 1 tab PO DAILY 09/26/22 03/05/23 History [Valsartan-Hctz 320-25 mg Tab] Omeprazole 20 mg PO DAILY@1600 03/05/23 03/05/23 History Allergies Allergy/AdvReac Type Severity Reaction Status Date / Time Penicillins Allergy rash and Verified 03/05/23 16:11 swelling Tetracyclines Allergy rash and Verified 03/05/23 16:11 swelling Surgical - Exam Vital Signs Temp Pulse Resp BP Pulse Ox 97.6 F 77 18 126/80 98 03/05/23 13:56 03/05/23 13:56 03/05/23 13:56 03/05/23 13:56 03/05/23 13:56 CONSTITUTIONAL: Awake and alert, appears comfortable, cooperative, well- developed, well-nourished, no pain, no acute distress EYES: Pupils equal, round, reactive to light, normal ocular movement ENT: Moist mucous membranes without oral lesions present NECK: No masses, no bruits, trachea midline RESPIRATORY: Lungs sounds clear to auscultation bilaterally. Respirations even, nonlabored. Currently on room air with oxygen saturation 95%. Strong cough. No chest wall deformities. No clubbing or cyanosis present CARDIOVASCULAR: S1, S2 present. Regular rate and rhythm, sinus rhythm on telemetry. Palpable peripheral pulses bilaterally. No edema present. No calf pain or tenderness noted GASTROINTESTINAL: Abdomen soft, nontender, nondistended without masses or organomegaly noted. There is no rebound or guarding present. Active bowel sounds present 4 quadrants. GENITOURINARY: Deferred INTEGUMENTARY: Skin is warm and dry with evidence of good perfusion. NEUROLOGIC: Cranial nerves II through XII intact, normal coordination, no obvious motor or sensory deficits, speech is normal MUSKULOSKELETAL: Able to move all extremities, strength equal bilaterally, normal posture PSYCHIATRIC: Alert and oriented to person place and time, appropriate affect, intact judgment and insight Results - Labs 03/06/23 07:31 03/06/23 07:31 Abnormal Lab Results - Last 24 Hours (Table) 03/05/23 03/05/23 03/05/23 Range/Units 14:50 14:50 14:50 RBC 3.05 L (4.30-5.90) m/uL Hgb 8.9 L (13.0-17.5) gm/dL Hct 27.4 L (39.0-53.0) % INR 1.2 H (<1.2) D-Dimer 3.25 H (<0.60) mg/L FEU Sodium 135 L (137-145) mmol/L Glucose 108 H (74-99) mg/dL Total Protein 6.1 L (6.3-8.2) g/dL Albumin 3.4 L (3.5-5.0) g/dL Ur Specific [place] (1.001-1.035) 03/05/23 03/06/23 03/06/23 Range/Units 17:36 07:31 07:31 RBC 2.98 L (4.30-5.90) m/uL Hgb 8.6 L (13.0-17.5) gm/dL Hct 26.9 L (39.0-53.0) % INR (<1.2) D-Dimer (<0.60) mg/L FEU Sodium 136 L (137-145) mmol/L Glucose 109 H (74-99) mg/dL Total Protein 5.9 L (6.3-8.2) g/dL Albumin 3.1 L (3.5-5.0) g/dL Ur Specific [place] >1.050 H (1.001-1.035) Diabetes panel 03/05/23 03/06/23 Range/Units 14:50 07:31 Sodium 135 L 136 L (137-145) mmol/L Potassium 3.8 3.7 (3.5-5.1) mmol/L Chloride 99 100 (98-107) mmol/L Carbon Dioxide 26 25 (22-30) mmol/L BUN 20 17 (9-20) mg/dL Creatinine 0.92 0.80 (0.66-1.25) mg/dL Glucose 108 H 109 H (74-99) mg/dL Calcium 8.9 8.7 (8.4-10.2) mg/dL AST 24 23 (17-59) U/L ALT 25 22 (4-49) U/L Alkaline Phosphatase 63 59 (38-126) U/L Total Protein 6.1 L 5.9 L (6.3-8.2) g/dL Albumin 3.4 L 3.1 L (3.5-5.0) g/dL Calcium panel 03/05/23 03/06/23 Range/Units 14:50 07:31 Calcium 8.9 8.7 (8.4-10.2) mg/dL Phosphorus 3.5 (2.5-4.5) mg/dL Albumin 3.4 L 3.1 L (3.5-5.0) g/dL Pituitary panel 03/05/23 03/06/23 Range/Units 14:50 07:31 Sodium 135 L 136 L (137-145) mmol/L Potassium 3.8 3.7 (3.5-5.1) mmol/L Chloride 99 100 (98-107) mmol/L Carbon Dioxide 26 25 (22-30) mmol/L BUN 20 17 (9-20) mg/dL Creatinine 0.92 0.80 (0.66-1.25) mg/dL Glucose 108 H 109 H (74-99) mg/dL Calcium 8.9 8.7 (8.4-10.2) mg/dL Adrenal panel 03/05/23 03/06/23 Range/Units 14:50 07:31 Sodium 135 L 136 L (137-145) mmol/L Potassium 3.8 3.7 (3.5-5.1) mmol/L Chloride 99 100 (98-107) mmol/L Carbon Dioxide 26 25 (22-30) mmol/L BUN 20 17 (9-20) mg/dL Creatinine 0.92 0.80 (0.66-1.25) mg/dL Glucose 108 H 109 H (74-99) mg/dL Calcium 8.9 8.7 (8.4-10.2) mg/dL Total Bilirubin 0.7 0.5 (0.2-1.3) mg/dL AST 24 23 (17-59) U/L ALT 25 22 (4-49) U/L Alkaline Phosphatase 63 59 (38-126) U/L Total Protein 6.1 L 5.9 L (6.3-8.2) g/dL Albumin 3.4 L 3.1 L (3.5-5.0) g/dL - Imaging Chest x-ray: report reviewed, image reviewed CT scan - chest: report reviewed, image reviewed EKG: image reviewed Assessment and Plan Assessment: Large pericardial effusion Anemia, unknown source Shortness of breath secondary to above History of hypertension GERD Questionable sleep apnea Daily EtOH use Previous tobacco dependence Plan: The patient was seen and examined sitting up in bed on the cardiac stepdown unit in no acute distress. Chart/diagnostics reviewed. The case will be discussed in detail with Dr. Curry. Currently the patient is in no distress, vital signs are completely stable. The patient states he is not short of breath when sitting in bed, however he does get short of breath with any activity including walking to and from the bathroom. He was started on colchicine. The usual perioperative course of pericardial window was discussed in detail with the patient and his , risks and benefits were reviewed, all questions were answered. More recommendations forthcoming once patient has been seen by surgeon. Medical management of other comorbidities per internal medicine. Thank you Dr. Restrepo for this consult. ADDENDUM: Echo and radiologic studies were reviewed. Patient history was reviewed. Patient seen and examined. PLAN: Pericardial window w bx of pericardium tomorrow. I have personally seen and examined the patient, performed the documentation and the assessment and plan as written. Number of minutes spent on the visit: 30. STEVEN RichC
--- NOTE | 2023-03-06 12:43 | P.PN ---
Subjective Progress Note Date: 03/06/23 Hospital Course: 67-year-old male with hypertension presenting with progressive shortness of breath, and exertional dyspnea. Vital signs have been within normal limits. Laboratory tests showed normocytic anemia at 8.9, d-dimer 3.25, creatinine 0.92, proBNP 400, troponin 0.017, respiratory viral panel negative. CTA chest showed moderate-sized pericardial effusion, no PE. EKG shows T-wave inversions in septal leads. Patient admitted for further workup. Echocardiogram pending. C ardiology and cardiothoracic surgery consulted. Subjective: Patient seen and examined at bedside. No acute events overnight. Pertinent positives and negatives as discussed above, a complete review of systems was performed and all other systems are negative. Vitals Signs Reviewed. General: nontoxic, no distress, appears at stated age Derm: warm, dry Head: atraumatic, normocephalic, symmetric Eyes: EOMI, no lid lag, anicteric sclera Mouth: no lip lesion, mucus membranes moist Cardiovascular: S1S2 reg, no murmur Lungs: CTA bilateral, no rhonchi, no rales , no accessory muscle use Abdominal: soft, nontender to palpation, no guarding, no appreciable organomegaly Ext: no gross muscle atrophy, no edema, no contractures Neuro: CN II-XI grossly intact, no focal neuro deficits Psych: Alert, oriented, appropriate affect Data Reviewed Today: Pertinent Labs: Hemoglobin 8.6, creatinine 0.8, troponin 0.02 Imaging: No new imaging Assessment and Plan: Active: Moderate Pericardial effusion Exertional dyspnea Anemia, unknown baseline, normocytic Daily alcohol use -Cardiology note reviewed, pending echocardiogram, colchicine and indomethacin started -Cardiothoracic surgery note reviewed, may need pericardial window -Repeat CBC tomorrow, no active bleeding at the moment -Monitor for alcohol withdrawal Chronic: Hypertension GERD DVT ppx: Subcu heparin Code status: Full code Anticipated discharge place: Pending clinical course Anticipated discharge time: Pending clinical course Objective - Vital Signs Vital signs: Vital Signs Temp 97.2 F L 03/06/23 08:00 Pulse 84 03/06/23 08:40 Resp 17 03/06/23 08:00 BP 127/75 03/06/23 08:00 Pulse Ox 95 03/06/23 08:00 FiO2 Intake & Output 03/05/23 03/06/23 03/06/23 18:59 06:59 18:59 Intake Total 610 Balance 610 Weight 101.605 kg 101.605 kg Intake: Oral 610 Other: Voiding Method Toilet Toilet # Voids 1 - Labs CBC & Chem 7: 03/06/23 07:31 03/06/23 07:31 Labs: Abnormal Lab Results - Last 24 Hours (Table) 03/05/23 03/05/23 03/05/23 Range/Units 14:50 14:50 14:50 RBC 3.05 L (4.30-5.90) m/uL Hgb 8.9 L (13.0-17.5) gm/dL Hct 27.4 L (39.0-53.0) % INR 1.2 H (<1.2) D-Dimer 3.25 H (<0.60) mg/L FEU Sodium 135 L (137-145) mmol/L Glucose 108 H (74-99) mg/dL Total Protein 6.1 L (6.3-8.2) g/dL Albumin 3.4 L (3.5-5.0) g/dL Ur Specific [place] (1.001-1.035) 03/05/23 03/06/23 03/06/23 Range/Units 17:36 07:31 07:31 RBC 2.98 L (4.30-5.90) m/uL Hgb 8.6 L (13.0-17.5) gm/dL Hct 26.9 L (39.0-53.0) % INR (<1.2) D-Dimer (<0.60) mg/L FEU Sodium 136 L (137-145) mmol/L Glucose 109 H (74-99) mg/dL Total Protein 5.9 L (6.3-8.2) g/dL Albumin 3.1 L (3.5-5.0) g/dL Ur Specific [place] >1.050 H (1.001-1.035)
[2023-03-06] MEDS: PANTOPRAZOLE 40 MG TABLET PO SCH (16:50)
--- NOTE | 2023-03-06 18:41 | CA ---
Transthoracic Echo Report Name: Torrey Harden Age: 67 Gender: M : 1955 Exam Date: 03/06/2023 10:19 Exam Location: [place] [facility] Ht (in): 72 Wt (lb): 224 Ordering Physician: Johann De Jesus DO Attending/Referring Phys: [id number], Liza Corporate Planning Manager Alejandra Contreras RDCS Procedure CPT: Indications: Effusion Cardiac Hx: Technical Quality: Fair Contrast 1: Total Dose (mL): Contrast 2: Total Dose (mL): MEASUREMENTS (Male / Female) Normal Values 2D ECHO LV Diastolic Diameter PLAX 4.0 cm 4.2 - 5.9 / 3.9 - 5.3 cm LV Systolic Diameter PLAX 2.8 cm IVS Diastolic Thickness 1.2 cm 0.6 - 1.0 / 0.6 - 0.9 cm LVPW Diastolic Thickness 1.7 cm 0.6 - 1.0 / 0.6 - 0.9 cm LV Relative Wall Thickness 0.7 LA Volume 66.5 cm??? 18 - 58 / 22 - 52 cm??? LA Volume Index 28.9 cm???/m??? 16 - 28 cm???/m??? M-MODE Aortic Root Diameter MM 4.0 cm DOPPLER AV Peak Velocity 161.3 cm/s AV Peak Gradient 10.4 mmHg AV Mean Velocity 124.3 cm/s AV Mean Gradient 6.7 mmHg AV Velocity Time Integral 29.3 cm LVOT Peak Velocity 110.6 cm/s LVOT Peak Gradient 4.9 mmHg LVOT Velocity Time Integral 18.1 cm MV Area PHT 3.9 cm??? Mitral E Point Velocity 66.8 cm/s Mitral A Point Velocity 49.0 cm/s Mitral E to A Ratio 1.4 MV Deceleration Time 194.5 ms MV E' Velocity 5.8 cm/s Mitral E to MV E' Ratio 11.6 TR Peak Velocity 210.2 cm/s TR Peak Gradient 17.7 mmHg Right Ventricular Systolic Press 22.7 mmHg FINDINGS Left Ventricle Mildly increased left ventricular wall thickness. Left ventricular cavity size normal. Normal left ventricular systolic function with no obvious regional wall motion abnormalities. Left ventricular ejection fraction is estimated at 50-55 %. Right Ventricle Normal right ventricular size and function. Right Atrium Normal right atrial size. Left Atrium Mildly increased left atrial volume. Mildly increased left atrial area. Mitral Valve Structurally normal mitral valve. Mild mitral regurgitation. Aortic Valve No aortic valve stenosis or regurgitation. Tricuspid Valve Structurally normal tricuspid valve. Mild tricuspid regurgitation. Pulmonic Valve Structurally normal pulmonic valve. Pericardium Large pericardial effusion with diastolic collapse of the right atrium. Aorta Normal size aortic root and proximal ascending aorta. CONCLUSIONS 1. Left ventricle systolic function borderline normal 2. Large pericardial effusion with diastolic collapse of the right atrium 3. Mild mitral and tricuspid regurgitation Previewed by: Dr. Lizeth Reddy MD (Electronically Signed) Final Date: 06 March 2023 18:40
[2023-03-07] MEDS: HEPARIN SODIUM,PORCINE 5,000 UNIT/ML 1 ML VIAL SQ SCH ×4 (00:09→23:21)
[2023-03-07] MEDS: SODIUM CHLORIDE 0.9% 1,000 ML IV SCH ×2 (01:05→01:09)
[2023-03-07] MEDS ORDERED: PROPOFOL 10 MG/ML 20 ML VIAL IV ONE (03:50)
[2023-03-07] MEDS ORDERED: fentaNYL (PF) 50 MCG/ML 2 ML AMP ONE (03:50)
[2023-03-07] MEDS ORDERED: MIDAZOLAM 2 MG/2 ML VIAL ONE (03:50)
[2023-03-07] MEDS: VALSARTAN 160 MG TAB PO SCH (06:17)
[2023-03-07] MEDS: hydroCHLOROthiazide 25 MG TAB PO SCH (06:17)
[2023-03-07] MEDS: COLCHICINE 0.6 MG EACH PO SCH ×2 (06:18→20:57)
[2023-03-07] MEDS: INDOMETHACIN 25 MG CAP PO SCH ×3 (06:18→20:57)
[2023-03-07 09:10] LABS: African American GFR (CKD) >90 (>60 ml/min/1.73 sqM); Anion Gap 10 mmol/L; Blood Urea Nitrogen 17 mg/dL (9-20); Calcium 8.6 mg/dL (8.4-10.2); Carbon Dioxide 25 mmol/L (22-30); Chloride 104 mmol/L (98-107); Glucose 126 mg/dL (74-99); Non-African American GFR(CKD) 86 (>60 ml/min/1.73 sqM); Potassium 3.7 mmol/L (3.5-5.1); Sodium 139 mmol/L (137-145)
--- NOTE | 2023-03-07 11:23 | P.PN ---
Subjective Progress Note Date: 03/07/23 Hospital Course: 67-year-old male with hypertension presenting with progressive shortness of br eath, and exertional dyspnea. Vital signs have been within normal limits. Laboratory tests showed normocytic anemia at 8.9, d-dimer 3.25, creatinine 0.92, proBNP 400, troponin 0.017, respiratory viral panel negative. CTA chest showed moderate-sized pericardial effusion, no PE. EKG shows T-wave inversions in septal leads. Patient admitted for further workup. Echocardiogram shows large pericardial effusion with diastolic collapse of the right atrium. Cardiology and cardiothoracic surgery consulted. Likely getting pericardial window. Subjective: Patient seen and examined at bedside. No acute events overnight. Pertinent positives and negatives as discussed above, a complete review of systems was performed and all other systems are negative. Vitals Signs Reviewed. General: nontoxic, no distress, appears at stated age Derm: warm, dry Head: atraumatic, normocephalic, symmetric Eyes: EOMI, no lid lag, anicteric sclera Mouth: no lip lesion, mucus membranes moist Cardiovascular: S1S2 reg, no murmur Lungs: CTA bilateral, no rhonchi, no rales , no accessory muscle use Abdominal: soft, nontender to palpation, no guarding, no appreciable organomegaly Ext: no gross muscle atrophy, no edema, no contractures Neuro: CN II-XI grossly intact, no focal neuro deficits Psych: Alert, oriented, appropriate affect Data Reviewed Today: Pertinent Labs: Creatinine 0.93 Imaging: Echocardiogram report reviewed, shows large pericardial effusion with diastolic collapse of the right atrium Assessment and Plan: Active: Large Pericardial effusion Exertional dyspnea Anemia, unknown baseline, normocytic Daily alcohol use -Cardiology following, patient currently on colchicine 0.6 mg twice a day, and indomethacin 25 mg 3 times a day -Cardiothoracic surgery following, patient will need pericardial window today -Repeat CBC tomorrow, no active bleeding at the moment -Monitor for alcohol withdrawal Chronic: Hypertension GERD DVT ppx: Subcu heparin (hold prior to procedure) Code status: Full code Anticipated discharge place: Pending clinical course Anticipated discharge time: Pending clinical course Objective - Vital Signs Vital signs: Vital Signs Temp 98.9 F 03/07/23 08:06 Pulse 71 03/07/23 08:06 Resp 17 03/07/23 08:06 BP 128/77 03/07/23 08:06 Pulse Ox 95 03/07/23 08:06 FiO2 Intake & Output 03/06/23 03/07/23 03/07/23 18:59 06:59 18:59 Intake Total 610 Balance 610 Weight 123.5 kg Intake: Oral 610 Other: Voiding Method Toilet Toilet Toilet # Voids 2 1 - Labs CBC & Chem 7: 03/06/23 07:31 03/07/23 08:00 Labs: Abnormal Lab Results - Last 24 Hours (Table) 03/07/23 Range/Units 08:00 Glucose 126 H (74-99) mg/dL
--- NOTE | 2023-03-07 11:46 | P.PN ---
Subjective HISTORY OF PRESENT ILLNESS: This is a 67-year-old male with a past medical history significant for GERD, hypertension, and former nicotine dependence. Patient follows in the office with Dr. Maldonado. We have been asked to see the patient in consultation for pericardial effusion. Patient examined at the bedside. Patient's spouse present. Patient presented to urgent care yesterday with a chief complaint of shortness of kvng th. He was instructed to come to the emergency room for further evaluation after having an abnormal chest x-ray revealing cardiomegaly. The patient states he has been having shortness of breath since October however did not affect his basic activities. He did have a stress test performed in October 2022 at [facility] which was negative for ischemia. He states over the past week he has been so short of breath with exertion to the point where he is not able to do much other than sit and rest. He denies having any chest pain or pressure. He denies any previous illness or URI. Denies known history of cancer. He is a nonsmoker. He reports daily alcohol use of 3-5 beers a day. He denies any drug use including marijuana. The patient was also found to be anemic with a hemoglobin of 8.6. No previous hemoglobin available in the EMR. Patient does report he has a history of anemia. He is unsure what his hemoglobin typically runs. The patient did have upper and lower endoscopy in September [address] Maldonado revealing moderate sized hiatal hernia and mild antral gastritis. Colonoscopy revealed scattered sigmoid diverticulosis. * EKG reveals sinus mechanism with T-wave inversions anteriorly. * Chest xray mild cardiomegaly with trace left pleural effusion * Chest CTA: No evidence of pulmonary embolism. Moderate sized pericardial effusion. Trace left pleural effusion. * Laboratory data: WBC 6.8. Hemoglobin 8.6. Platelet count 355. Sodium 135. Potassium 3.8. BUN 20. Creatinine 0.92. Troponin negative 3. ProBNP 399. * Current home cardiac medications include valsartan-hydrochlorothiazide 320- 25mg daily * Most recent echocardiogram obtained in January 2023 in the office revealed ejection fraction 55%, trace aortic regurgitation, mild mitral regurgitation, mild to moderate tricuspid regurgitation, with small pericardial effusion 03/07/2023 Patient examined this morning at the bedside. patients family members are present. Patient currently denies chest pain or pressure. He denies shortness of breath. Echocardiogram completed revealing ejection fraction 5055%, mild MR, mild TR, and large pericardial effusion with diastolic collapse of the right atrium. Patient is scheduled for pericardial window today with CT surgery. PHYSICAL EXAM: VITAL SIGNS: Reviewed. GENERAL: Well-developed in no acute distress. HEENT: Head is normocephalic. Pupils are equal, round. Sclerae anicteric. Mucous membranes of the mouth are moist. Neck supple. No JVD or thyromegaly LUNGS: Respirations even and unlabored. Lungs essentially clear to auscultation bilaterally. HEART: Regular rate and rhythm. S1 and S2 heard. Pericardial rub noted. ABDOMEN: Soft. Nondistended. Nontender. EXTREMITIES: Normal range of motion. No clubbing or cyanosis. Peripheral pulses intact. No lower extremity edema NEUROLOGIC: Awake and alert. Oriented x 3. ASSESSMENT: Exertional dyspnea Large pericardial effusion Hypertension Anemia, baseline unknown, status post upper and lower endoscopy, September 2022, as above GERD Former nicotine dependence Daily alcohol use PLAN: Continue colchicine and indomethacin. Continue Protonix. Recommend further workup of anemia. Will defer to internal medicine. Patient scheduled for pericardial window today with CT surgery Further recommendations pending patient's course Nurse practitioner note has been reviewed by physician. Signing provider agrees with the documented findings, assessment, and plan of care. Objective - Vital Signs Vital signs: Vital Signs Temp 98.9 F 03/07/23 08:06 Pulse 71 03/07/23 08:06 Resp 17 03/07/23 08:06 BP 128/77 03/07/23 08:06 Pulse Ox 95 03/07/23 08:06 FiO2 Intake & Output 03/06/23 03/07/23 03/07/23 18:59 06:59 18:59 Intake Total 610 Balance 610 Intake: Oral 610 Other: Voiding Method Toilet Toilet # Voids 2 1 - Labs CBC & Chem 7: 03/06/23 07:31 03/07/23 08:00 Labs: Abnormal Lab Results - Last 24 Hours (Table) 03/06/23 Range/Units 07:31 Sodium 136 L (137-145) mmol/L Glucose 109 H (74-99) mg/dL Total Protein 5.9 L (6.3-8.2) g/dL Albumin 3.1 L (3.5-5.0) g/dL
[2023-03-07] MEDS ORDERED: LACTATED RINGERS 1,000 ML IV ONE (13:25)
[2023-03-07] MEDS ORDERED: LIDOCAINE 1% INJ 10MG/ML (20 ML MDV) SQ ONE ×3 (13:35→14:01)
--- NOTE | 2023-03-07 14:43 | P.OP ---
Date of Procedure: 03/07/23 Preoperative Diagnosis: Pericardial effusion, early tamponade Postoperative Diagnosis: Same Procedure(s) Performed: Subxiphoid pericardial window Anesthesia: MAC Surgeon: Shaka Curry Take Out Waiter/Waitress #2: Stef Couch Estimated Blood Loss (ml): 3 Pathology: other (Pericardium for pathology, pericardial fluid for cytology, cell count, chemistry, cultures) Condition: stable Disposition: PACU Indications for Procedure: 67-year-old male presents with worsening dyspnea on exertion. At this point a short of breath just walking across the room. He was found to have a large pericardial effusion. Drainage with biopsy was requested by Dr. Restrepo. Patient has no medical history also besides a recent history of anemia. Operative Findings: Pericardium was markedly thickened and fibrotic. Pericardial space was free. There was a large pericardial effusion. This appeared serosanguineous. There was no palpable implants within the pericardium. A total of 700 mL of pericardial fluid was drained. Description of Procedure: Patient was brought to the operating room and placed supine on the operating table. Head was raised 30. The anterior torso and upper abdomen were sterilely prepped and draped. After appropriate timeout, 1% lidocaine was used to anesthetize the area directly inferior to and adjacent to the xiphoid on the left. Incision was made and carried down through skin and subcutaneous tissue. The midline fascia was identified and incised. Dissection was carried up along the left side of the xiphoid. Blunt dissection was carried beneath the sternum and the diaphragm was palpated and grasped with a Mullens clamp and pulled inferiorly. Pericardium was identified superior to this. We incised the pericardium with Metzenbaums scissors. Immediately a large gush of fluid was encountered. This was collected in the suction. Once of fluid drainage was controlled, a biopsy of the pericardium was performed by grasping the pericardium with a Jed and excising a small piece. This resulted in a quarter size hole within the pericardium. Through this a finger was placed and the pericardial sac was palpated to the best of my ability given the limited exposure. Next a 28-Faroese chest tube was placed into the pericardium and brought out through separate stab incision and secured with 0 Ethibond suture. Fascia was closed with #1 Vicryl skin was closed with a 3-0 Vicryl. Sterile dressings were applied. Chest with was connected to a Pleur-evac and the patient was transferred to recovery.
--- NOTE | 2023-03-07 15:05 | XR ---
EXAMINATION TYPE: XR chest 1V portable DATE OF EXAM: 03/07/2023 COMPARISON: 03/05/2023. HISTORY: Post pericardial window TECHNIQUE: Single frontal view of the chest is obtained. FINDINGS: Marked cardiomegaly stable. Underlying COPD. Resolution of small left pleural effusion. Th ere is debris drain overlying the anterior margin of the lower heart likely related to pericardial wi ndow. Underlying emphysematous changes. Linear density right midlung compatible scarring or atelectas is. IMPRESSION: 1. COPD and cardiomegaly. A drainage catheter overlying the lower cardiac border likely on the basis of history of post pericardial window.
[2023-03-07] MEDS ORDERED: ACETAMINOPHEN TAB 325 MG TAB PO PRN (15:48)
[2023-03-07] MEDS: PANTOPRAZOLE 40 MG TABLET PO SCH (17:28)
[2023-03-07 20:24] LABS: Appearance,BF Grossly Bloody (Clear)
[2023-03-08 02:41] LABS: Amylase,Body Fluid 26 U/L; Glucose, Body Fluid 90 mg/dL
--- NOTE | 2023-03-08 08:15 | P.PN ---
Subjective Progress Note Date: 03/08/23 Principal diagnosis: Large pericardial effusion, early tamponade, anemia. History of hypertension, GERD, questionable sleep apnea, daily EtOH use, previous tobacco dependence POD #1 subxiphoid pericardial window with removal of 700 mL pericardial fluid The patient was seen and examined sitting up in bed in no acute distress. States pain is well controlled, denies shortness of breath. Patient states he has been able to get up an walk around without difficulty breathing, states he feels much better. Mediastinal chest tube present to water seal, 190 ml bloody drainage since surgery. Remains on room air. No other new concerns. Objective - Vital Signs Vital signs: Vital Signs Temp 97.7 F 03/08/23 08:00 Pulse 84 03/08/23 08:00 Resp 16 03/08/23 08:00 BP 127/72 03/08/23 08:00 Pulse Ox 95 03/08/23 08:00 FiO2 Intake & Output 03/07/23 03/08/23 03/08/23 18:59 06:59 18:59 Intake Total 530 Output Total 125 60 Balance 405 -60 Intake: IV 350 Oral 180 Output: Chest Tube Drainage 0 60 Chest Tube Right 0 60 Pleural Fluid 120 Estimated Blood Loss 5 Other: Voiding Method Toilet Toilet # Voids 2 - Exam CONSTITUTIONAL: Appears comfortable, cooperative, no acute distress RESPIRATORY: Lungs sounds clear bilaterally. Respirations even, nonlabored. Currently on room air with oxygen saturation 95%. Able to achieve 2500 mL on incentive spirometry. Strong cough. CARDIOVASCULAR: S1, S2 present. Regular rate and rhythm, sinus rhythm on telemetry. Palpable peripheral pulses bilaterally. No edema present. No calf pain or tenderness noted GASTROINTESTINAL: Abdomen soft, nontender, nondistended. Active bowel sounds present 4 quadrants. Tolerating diet GENITOURINARY: Continues to void INTEGUMENTARY: Skin is warm and dry NEUROLOGIC: Cranial nerves II through XII intact MUSKULOSKELETAL: Able to move all extremities, strength equal bilaterally, gait normal PSYCHIATRIC: Alert and oriented to person place and time, appropriate affect, intact judgment and insight INVASIVE LINES AND TUBES: Mediastinal chest tube present to water seal, 60 mL bloody drainage overnight, 190 mL since surgery - Allied health notes Allied health notes reviewed: nursing - Labs CBC & Chem 7: 03/06/23 07:31 03/07/23 08:00 Labs: Abnormal Lab Results - Last 24 Hours (Table) 03/07/23 03/07/23 Range/Units 08:00 14:20 Glucose 126 H (74-99) mg/dL Fluid Appearance Grossly Bloody A (Clear) - Imaging and Cardiology Chest x-ray: image reviewed Assessment and Plan Assessment: Large pericardial effusion, early tamponade, status post subxiphoid pericardial window Anemia, unknown source Shortness of breath secondary to above History of hypertension GERD Questionable sleep apnea Daily EtOH use Previous tobacco dependence Plan: Continue chest tube to water seal, monitor drainage Encourage incentive spirometer Increase activity, ambulate as tolerated Continue colchicine, indocin Medical management of other comorbidities per internal medicine, cardiology More recommendations based on patient progress
--- NOTE | 2023-03-08 08:38 | XR ---
EXAMINATION TYPE: XR chest 1V portable DATE OF EXAM: 03/08/2023 COMPARISON: 03/07/2023 HISTORY: Post pericardial window TECHNIQUE: Single frontal view of the chest is obtained. FINDINGS: Marked cardiomegaly stable. Underlying COPD. Resolution of small left pleural effusion. Th ere is debris drain overlying the anterior margin of the lower heart likely related to pericardial wi ndow. Underlying emphysematous changes. Linear density right midlung compatible scarring or atelectas is. Subsegmental atelectasis in the retrocardiac region left lung base. IMPRESSION: 1. Stable cardiomegaly. 2. COPD. 3. Left basilar atelectasis favored over pneumonia
[2023-03-08 08:41] LABS: Basophils % (A) 0 %; Eosinophils # (A) 0.4 k/uL (0-0.7); Eosinophils % (A) 6 %; HCT 31.6 % (39.0-53.0); Hypochromasia Moderate; Lymphocytes # (A) 0.9 k/uL (1.0-4.8); Lymphocytes % (A) 13 %; MCH 28.6 pg (25.0-35.0); MCHC 31.6 g/dL (31.0-37.0); MCV 90.6 fL (80.0-100.0); Mean Platelet Volume 7.9; Monocytes # (A) 0.3 k/uL (0-1.0); Monocytes % (A) 5 %; Neutrophils # (A) 5.1 k/uL (1.3-7.7); Neutrophils % (A) 74 %; Platelet Count 461 k/uL (150-450); RBC 3.49 m/uL (4.30-5.90); RDW 14.4 % (11.5-15.5); WBC 6.9 k/uL (3.8-10.6)
[2023-03-08 09:02] LABS: African American GFR (CKD) >90 (>60 ml/min/1.73 sqM); Anion Gap 9 mmol/L; Blood Urea Nitrogen 14 mg/dL (9-20); Calcium 8.9 mg/dL (8.4-10.2); Carbon Dioxide 27 mmol/L (22-30); Chloride 104 mmol/L (98-107); Glucose 155 mg/dL (74-99); Non-African American GFR(CKD) >90 (>60 ml/min/1.73 sqM); Potassium 3.7 mmol/L (3.5-5.1); Sodium 140 mmol/L (137-145)
[2023-03-08] MEDS: HEPARIN SODIUM,PORCINE 5,000 UNIT/ML 1 ML VIAL SQ SCH ×2 (09:12→15:37)
[2023-03-08] MEDS: INDOMETHACIN 25 MG CAP PO SCH ×3 (09:12→21:06)
[2023-03-08] MEDS: hydroCHLOROthiazide 25 MG TAB PO SCH (09:12)
[2023-03-08] MEDS: VALSARTAN 160 MG TAB PO SCH (09:13)
[2023-03-08] MEDS: COLCHICINE 0.6 MG EACH PO SCH ×2 (09:13→19:45)
--- NOTE | 2023-03-08 11:47 | P.PN ---
Subjective Progress Note Date: 03/08/23 Hospital Course: 67-year-old male with hypertension presenting with progressive shortness of br eath, and exertional dyspnea. Vital signs have been within normal limits. Laboratory tests showed normocytic anemia at 8.9, d-dimer 3.25, creatinine 0.92, proBNP 400, troponin 0.017, respiratory viral panel negative. CTA chest showed moderate-sized pericardial effusion, no PE. EKG shows T-wave inversions in septal leads. Patient admitted for further workup. Echocardiogram shows large pericardial effusion with diastolic collapse of the right atrium. Cardiology and cardiothoracic surgery consulted. Status post pericardial window with removal of 700 mL serosanguineous pericardial fluid. Currently has a chest tube in place. Subjective: Patient seen and examined at bedside. No acute events overnight. Pertinent positives and negatives as discussed above, a complete review of systems was performed and all other systems are negative. Vitals Signs Reviewed. General: nontoxic, no distress, appears at stated age Derm: warm, dry, chest tube site clean, dry, intact Head: atraumatic, normocephalic, symmetric Eyes: EOMI, no lid lag, anicteric sclera Mouth: no lip lesion, mucus membranes moist Cardiovascular: S1S2 reg, no murmur Lungs: CTA bilateral, no rhonchi, no rales , no accessory muscle use Abdominal: soft, nontender to palpation, no guarding, no appreciable organomegaly Ext: no gross muscle atrophy, no edema, no contractures Neuro: CN II-XI grossly intact, no focal neuro deficits Psych: Alert, oriented, appropriate affect Data Reviewed Today: Pertinent Labs: WBC 6.9, hemoglobin 10, creatinine 0.7, pericardial fluid exudative in nature and bloody Imaging: Chest x-ray independently interpreted, shows no acute process Assessment and Plan: Active: Large Pericardial effusion, early tamponade status post pericardial window Hemopericardium Exertional dyspnea Anemia, unknown baseline, normocytic Daily alcohol use -Cardiology following, patient currently on colchicine 0.6 mg twice a day, and indomethacin 25 mg 3 times a day -Cardiothoracic surgery note reviewed, continue chest tube to waterseal -Cytology, and cultures pending -Repeat CBC tomorrow and BMP tomorrow -Monitor for alcohol withdrawal Chronic: Hypertension GERD DVT ppx: Subcu heparin (hold prior to procedure) Code status: Full code Anticipated discharge place: Pending clinical course Anticipated discharge time: Pending clinical course Objective - Vital Signs Vital signs: Vital Signs Temp 97.7 F 03/08/23 08:00 Pulse 84 03/08/23 08:00 Resp 16 03/08/23 08:00 BP 127/72 03/08/23 08:00 Pulse Ox 95 03/08/23 08:00 FiO2 Intake & Output 03/07/23 03/08/23 03/08/23 18:59 06:59 18:59 Intake Total 530 0 Output Total 125 60 Balance 405 -60 0 Intake: IV 350 Oral 180 0 Output: Chest Tube Drainage 0 60 Chest Tube Right 0 60 Pleural Fluid 120 Estimated Blood Loss 5 Other: Voiding Method Toilet Toilet Toilet # Voids 2 - Labs CBC & Chem 7: 03/08/23 08:13 03/08/23 08:13 Labs: Abnormal Lab Results - Last 24 Hours (Table) 03/07/23 03/08/23 03/08/23 Range/Units 14:20 08:13 08:13 RBC 3.49 L (4.30-5.90) m/uL Hgb 10.0 L (13.0-17.5) gm/dL Hct 31.6 L (39.0-53.0) % Plt Count 461 H (150-450) k/uL Lymphocytes # 0.9 L (1.0-4.8) k/uL Glucose 155 H (74-99) mg/dL Fluid Appearance Grossly Bloody A (Clear)
--- NOTE | 2023-03-08 12:35 | P.PN ---
Subjective HISTORY OF PRESENT ILLNESS: This is a 67-year-old male with a past medical history significant for GERD, hypertension, and former nicotine dependence. Patient follows in the office with Dr. Maldonado. We have been asked to see the patient in consultation for pericardial effusion. Patient examined at the bedside. Patient's spouse present. Patient presented to urgent care yesterday with a chief complaint of shortness of kvng th. He was instructed to come to the emergency room for further evaluation after having an abnormal chest x-ray revealing cardiomegaly. The patient states he has been having shortness of breath since October however did not affect his basic activities. He did have a stress test performed in October 2022 at [facility] which was negative for ischemia. He states over the past week he has been so short of breath with exertion to the point where he is not able to do much other than sit and rest. He denies having any chest pain or pressure. He denies any previous illness or URI. Denies known history of cancer. He is a nonsmoker. He reports daily alcohol use of 3-5 beers a day. He denies any drug use including marijuana. The patient was also found to be anemic with a hemoglobin of 8.6. No previous hemoglobin available in the EMR. Patient does report he has a history of anemia. He is unsure what his hemoglobin typically runs. The patient did have upper and lower endoscopy in September [address] Maldonado revealing moderate sized hiatal hernia and mild antral gastritis. Colonoscopy revealed scattered sigmoid diverticulosis. * EKG reveals sinus mechanism with T-wave inversions anteriorly. * Chest xray mild cardiomegaly with trace left pleural effusion * Chest CTA: No evidence of pulmonary embolism. Moderate sized pericardial effusion. Trace left pleural effusion. * Laboratory data: WBC 6.8. Hemoglobin 8.6. Platelet count 355. Sodium 135. Potassium 3.8. BUN 20. Creatinine 0.92. Troponin negative 3. ProBNP 399. * Current home cardiac medications include valsartan-hydrochlorothiazide 320- 25mg daily * Most recent echocardiogram obtained in January 2023 in the office revealed ejection fraction 55%, trace aortic regurgitation, mild mitral regurgitation, mild to moderate tricuspid regurgitation, with small pericardial effusion 03/07/2023 Patient examined this morning at the bedside. patients family members are present. Patient currently denies chest pain or pressure. He denies shortness of breath. Echocardiogram completed revealing ejection fraction 5055%, mild MR, mild TR, and large pericardial effusion with diastolic collapse of the right atrium. Patient is scheduled for pericardial window today with CT surgery. 03/08/2023 Patient is status post subxiphoid pericardial window with Dr. Curry with removal of 700 mL of fluid drained. Postop day #1. Patient examined this morning at the bedside. Patient reports significant improvement in his shortness of breath. He denies any chest pain or pressure. Vital signs are stable. Patient with mediastinal chest tube present to [facility]. PHYSICAL EXAM: VITAL SIGNS: Reviewed. GENERAL: Well-developed in no acute distress. HEENT: Head is normocephalic. Pupils are equal, round. Sclerae anicteric. Mucous membranes of the mouth are moist. Neck supple. No JVD or thyromegaly LUNGS: Respirations even and unlabored. Lungs essentially clear to auscultation bilaterally. HEART: Regular rate and rhythm. S1 and S2 heard. Pericardial rub noted. ABDOMEN: Soft. Nondistended. Nontender. EXTREMITIES: Normal range of motion. No clubbing or cyanosis. Peripheral pulses intact. No lower extremity edema NEUROLOGIC: Awake and alert. Oriented x 3. ASSESSMENT: Exertional dyspnea Large pericardial effusion, status post pericardial window Hypertension Anemia, baseline unknown, status post upper and lower endoscopy, September 2022, as above GERD Former nicotine dependence Daily alcohol use PLAN: Continue colchicine and indomethacin. Continue Protonix. Continue management of chest tube per CT surgery Further recommendations pending patient's course Nurse practitioner note has been reviewed by physician. Signing provider agrees with the documented findings, assessment, and plan of care. Objective - Vital Signs Vital signs: Vital Signs Temp 97.7 F 03/08/23 08:00 Pulse 84 03/08/23 08:00 Resp 16 03/08/23 08:00 BP 127/72 03/08/23 08:00 Pulse Ox 95 03/08/23 08:00 FiO2 Intake & Output 03/07/23 03/08/23 03/08/23 18:59 06:59 18:59 Intake Total 530 0 Output Total 125 60 Balance 405 -60 0 Intake: IV 350 Oral 180 0 Output: Chest Tube Drainage 0 60 Chest Tube Right 0 60 Pleural Fluid 120 Estimated Blood Loss 5 Other: Voiding Method Toilet Toilet Toilet # Voids 2 - Labs CBC & Chem 7: 03/08/23 08:13 03/08/23 08:13 Labs: Abnormal Lab Results - Last 24 Hours (Table) 03/07/23 03/08/23 03/08/23 Range/Units 14:20 08:13 08:13 RBC 3.49 L (4.30-5.90) m/uL Hgb 10.0 L (13.0-17.5) gm/dL Hct 31.6 L (39.0-53.0) % Plt Count 461 H (150-450) k/uL Lymphocytes # 0.9 L (1.0-4.8) k/uL Glucose 155 H (74-99) mg/dL Fluid Appearance Grossly Bloody A (Clear) Microbiology - Last 24 Hours (Table) 03/07/23 14:20 Gram Stain - Preliminary Pericardial Fluid
[2023-03-08] MEDS: PANTOPRAZOLE 40 MG TABLET PO SCH (15:38)
[2023-03-09] MEDS: HEPARIN SODIUM,PORCINE 5,000 UNIT/ML 1 ML VIAL SQ SCH ×4 (00:05→23:47)
--- NOTE | 2023-03-09 07:18 | XR ---
EXAMINATION TYPE: XR chest 2V DATE OF EXAM: 03/09/2023 COMPARISON: 03/08/2023 TECHNIQUE: PA and lateral views submitted. HISTORY: Post pericardial window FINDINGS: Heart size is reduced relative to prior exam. Underlying COPD. Resolution of small left pleural effus ion. There is debris drain overlying the anterior margin of the lower heart likely related to pericar dial window. Underlying emphysematous changes. Linear density right midlung compatible scarring or at electasis. Subsegmental atelectasis in the retrocardiac region left lung base. IMPRESSION: 1. Heart size is reduced relative to the prior exam. 2. COPD.
[2023-03-09 08:36] LABS: Basophils % (A) 0 %; Eosinophils # (A) 0.4 k/uL (0-0.7); Eosinophils % (A) 8 %; HCT 33.9 % (39.0-53.0); HGB 10.3 gm/dL (13.0-17.5); Hypochromasia Moderate; Lymphocytes # (A) 1.3 k/uL (1.0-4.8); Lymphocytes % (A) 23 %; MCH 28.1 pg (25.0-35.0); MCHC 30.6 g/dL (31.0-37.0); Mean Platelet Volume 7.8; Monocytes # (A) 0.3 k/uL (0-1.0); Monocytes % (A) 6 %; Neutrophils # (A) 3.4 k/uL (1.3-7.7); Neutrophils % (A) 61 %; Platelet Count 484 k/uL (150-450); RBC 3.68 m/uL (4.30-5.90); RDW 14.3 % (11.5-15.5); WBC 5.6 k/uL (3.8-10.6)
[2023-03-09] MEDS: hydroCHLOROthiazide 25 MG TAB PO SCH (09:32)
[2023-03-09] MEDS: INDOMETHACIN 25 MG CAP PO SCH ×3 (09:32→20:23)
[2023-03-09] MEDS: COLCHICINE 0.6 MG EACH PO SCH ×2 (09:33→20:24)
[2023-03-09] MEDS: VALSARTAN 160 MG TAB PO SCH (09:33)
--- NOTE | 2023-03-09 10:47 | P.PN ---
Subjective Progress Note Date: 03/09/23 Principal diagnosis: Large pericardial effusion, early tamponade, anemia. Past medical history significant for hypertension, GERD, questionable sleep apnea, daily EtOH use, previous tobacco dependence. POD #2 subxiphoid pericardial window with removal of 700 mL pericardial fluid. The patient was seen and examined in follow-up today 03/09/2023 at his bedside on the third floor cardiac stepdown unit. Currently he is sitting up to the bedside edge, is awake, alert, oriented 3 and is in no acute apparent distress. He reports he has been up ambulating in the cardiac stepdown unit hallway independently and tolerating well. Oxygen saturation are 98% on room air and he is achieving 3000 mL on his incentive spirometry with encouragement. Remote telemetry showing normal sinus rhythm heart rate 90 bpm, the electrical tech/project manager reports that his heart rate has at times been bradycardic as low as 48 BPM. He has been afebrile the last 24 hours. Subxiphoid chest tube remains in place on waterseal, no air leak is present. Draining thin serosanguineous drainage with 20 mL output in the last 24 hours. Laboratory and chest x-ray results reviewed. Cytology results remain pending. Objective - Vital Signs Vital signs: Vital Signs Temp 97.9 F 03/09/23 07:45 Pulse 84 03/09/23 07:45 Resp 18 03/09/23 07:45 BP 145/80 03/09/23 07:45 Pulse Ox 95 03/09/23 08:19 FiO2 21 03/09/23 08:19 Intake & Output 03/08/23 03/09/23 03/09/23 18:59 06:59 18:59 Intake Total 480 480 Output Total 0 520 0 Balance 480 -40 0 Intake: Oral 480 480 Output: Chest Tube Drainage 0 20 0 Chest Tube Right 0 20 0 Urine 500 Other: Voiding Method Toilet Toilet Toilet - Exam CONSTITUTIONAL: Appears comfortable, cooperative, no acute distress. RESPIRATORY: Lungs sounds clear throughout bilaterally. Respirations are symmetrical, nonlabored. Currently on room air with oxygen saturation 98%. Able to achieve 3000 mL on his incentive spirometry. Strong cough. CARDIOVASCULAR: S1, S2 present. Regular rate and rhythm, sinus rhythm on telemetry. Palpable peripheral pulses bilaterally. No edema present. No calf pain or tenderness noted. GASTROINTESTINAL: Abdomen soft, nontender, nondistended. Active bowel sounds present 4 quadrants. Tolerating diet. Bowel movement this a.m. GENITOURINARY: Continues to void. INTEGUMENTARY: Skin is warm and dry. NEUROLOGIC: Cranial nerves II through XII intact. No focal deficits. MUSKULOSKELETAL: Able to move all extremities, strength equal bilaterally, gait normal. PSYCHIATRIC: Alert and oriented to person place and time, appropriate affect, intact judgment and insight. INVASIVE LINES AND TUBES: Subxiphoid chest tube present to water seal, draining thin serosanguineous drainage with 20 mL output in the last 24 hours. No air leak is present. - Allied health notes Allied health notes reviewed: nursing - Labs CBC & Chem 7: 03/09/23 08:11 03/08/23 08:13 Labs: Abnormal Lab Results - Last 24 Hours (Table) 03/09/23 Range/Units 08:11 RBC 3.68 L (4.30-5.90) m/uL Hgb 10.3 L (13.0-17.5) gm/dL Hct 33.9 L (39.0-53.0) % MCHC 30.6 L (31.0-37.0) g/dL Plt Count 484 H (150-450) k/uL Microbiology - Last 24 Hours (Table) 03/07/23 14:20 Acid Fast Bacilli Smear - Preliminary Pericardial Fluid 03/07/23 14:20 Gram Stain - Preliminary Pericardial Fluid Body Fluid Culture - Preliminary - Imaging and Cardiology Chest x-ray: report reviewed, image reviewed Assessment and Plan Assessment: Large pericardial effusion, early tamponade, status post subxiphoid pericardial window Anemia, unknown source Shortness of breath secondary to above History of hypertension GERD Questionable sleep apnea Daily EtOH use Previous tobacco dependence Plan: We will remove his subxiphoid chest tube today, and the patient can be discharged home per the cardiothoracic surgery standpoint when okay with primary care and other consultants. Encourage incentive spirometer 10 times every hour while awake. Increase activity, ambulate as tolerated. Continue colchicine, indocin. Medical management of other comorbidities per internal medicine, cardiology. Transthoracic 2-D echocardiogram has been ordered for today and results are pending. Pericardial fluid cytology and pericardium biopsy results remain pending, continue to follow. More recommendations based on patient based on patient's clinical course. Time with Patient: Greater than 30
--- NOTE | 2023-03-09 11:13 | P.PN ---
Subjective HISTORY OF PRESENT ILLNESS: This is a 67-year-old male with a past medical history significant for GERD, hypertension, and former nicotine dependence. Patient follows in the office with Dr. Maldonado. We have been asked to see the patient in consultation for pericardial effusion. Patient examined at the bedside. Patient's spouse present. Patient presented to urgent care yesterday with a chief complaint of shortness of kvng th. He was instructed to come to the emergency room for further evaluation after having an abnormal chest x-ray revealing cardiomegaly. The patient states he has been having shortness of breath since October however did not affect his basic activities. He did have a stress test performed in October 2022 at [facility] which was negative for ischemia. He states over the past week he has been so short of breath with exertion to the point where he is not able to do much other than sit and rest. He denies having any chest pain or pressure. He denies any previous illness or URI. Denies known history of cancer. He is a nonsmoker. He reports daily alcohol use of 3-5 beers a day. He denies any drug use including marijuana. The patient was also found to be anemic with a hemoglobin of 8.6. No previous hemoglobin available in the EMR. Patient does report he has a history of anemia. He is unsure what his hemoglobin typically runs. The patient did have upper and lower endoscopy in September [address] Maldonado revealing moderate sized hiatal hernia and mild antral gastritis. Colonoscopy revealed scattered sigmoid diverticulosis. * EKG reveals sinus mechanism with T-wave inversions anteriorly. * Chest xray mild cardiomegaly with trace left pleural effusion * Chest CTA: No evidence of pulmonary embolism. Moderate sized pericardial effusion. Trace left pleural effusion. * Laboratory data: WBC 6.8. Hemoglobin 8.6. Platelet count 355. Sodium 135. Potassium 3.8. BUN 20. Creatinine 0.92. Troponin negative 3. ProBNP 399. * Current home cardiac medications include valsartan-hydrochlorothiazide 320- 25mg daily * Most recent echocardiogram obtained in January 2023 in the office revealed ejection fraction 55%, trace aortic regurgitation, mild mitral regurgitation, mild to moderate tricuspid regurgitation, with small pericardial effusion 03/07/2023 Patient examined this morning at the bedside. patients family members are present. Patient currently denies chest pain or pressure. He denies shortness of breath. Echocardiogram completed revealing ejection fraction 5055%, mild MR, mild TR, and large pericardial effusion with diastolic collapse of the right atrium. Patient is scheduled for pericardial window today with CT surgery. 03/08/2023 Patient is status post subxiphoid pericardial window with Dr. Curry with removal of 700 mL of fluid drained. Postop day #1. Patient examined this morning at the bedside. Patient reports significant improvement in his shortness of breath. He denies any chest pain or pressure. Vital signs are stable. Patient with mediastinal chest tube present to [facility]. 03/10/2023 Patient examined this morning at the bedside. Patient denies any chest pain or pressure. He denies any shortness of breath. Mediastinal chest tube remains to [facility] with minimal drainage. Patient reports chest tube is been removed today per CT surgery. Vital signs are stable. Telemetry reveals sinus mechanism. PHYSICAL EXAM: VITAL SIGNS: Reviewed. GENERAL: Well-developed in no acute distress. HEENT: Head is normocephalic. Pupils are equal, round. Sclerae anicteric. Mucous membranes of the mouth are moist. Neck supple. No JVD or thyromegaly LUNGS: Respirations even and unlabored. Lungs essentially clear to auscultation bilaterally. HEART: Regular rate and rhythm. S1 and S2 heard. Pericardial rub noted. ABDOMEN: Soft. Nondistended. Nontender. EXTREMITIES: Normal range of motion. No clubbing or cyanosis. Peripheral pulses intact. No lower extremity edema NEUROLOGIC: Awake and alert. Oriented x 3. ASSESSMENT: Exertional dyspnea Large pericardial effusion, status post pericardial window Hypertension Anemia, baseline unknown, status post upper and lower endoscopy, September 2022, as above GERD Former nicotine dependence Daily alcohol use PLAN: Continue colchicine and indomethacin. Continue Protonix. Continue management of chest tube per CT surgery. Likely removal today Obtain limited echo to re-assess pericardial effusion Stable from a cardiac standpoint Nurse practitioner note has been reviewed by physician. Signing provider agrees with the documented findings, assessment, and plan of care. Objective - Vital Signs Vital signs: Vital Signs Temp 97.9 F 03/09/23 07:45 Pulse 84 03/09/23 07:45 Resp 18 03/09/23 07:45 BP 145/80 03/09/23 07:45 Pulse Ox 95 03/09/23 08:19 FiO2 21 03/09/23 08:19 Intake & Output 03/08/23 03/09/23 03/09/23 18:59 06:59 18:59 Intake Total 480 480 Output Total 0 520 0 Balance 480 -40 0 Intake: Oral 480 480 Output: Chest Tube Drainage 0 20 0 Chest Tube Right 0 20 0 Urine 500 Other: Voiding Method Toilet Toilet Toilet - Labs CBC & Chem 7: 03/09/23 08:11 03/08/23 08:13 Labs: Abnormal Lab Results - Last 24 Hours (Table) 03/09/23 Range/Units 08:11 RBC 3.68 L (4.30-5.90) m/uL Hgb 10.3 L (13.0-17.5) gm/dL Hct 33.9 L (39.0-53.0) % MCHC 30.6 L (31.0-37.0) g/dL Plt Count 484 H (150-450) k/uL Microbiology - Last 24 Hours (Table) 03/07/23 14:20 Acid Fast Bacilli Smear - Preliminary Pericardial Fluid 03/07/23 14:20 Gram Stain - Preliminary Pericardial Fluid Body Fluid Culture - Preliminary
--- NOTE | 2023-03-09 14:12 | P.PN ---
Subjective Progress Note Date: 03/09/23 Hospital Course: 67-year-old male with hypertension presenting with progressive shortness of br eath, and exertional dyspnea. Vital signs have been within normal limits. Laboratory tests showed normocytic anemia at 8.9, d-dimer 3.25, creatinine 0.92, proBNP 400, troponin 0.017, respiratory viral panel negative. CTA chest showed moderate-sized pericardial effusion, no PE. EKG shows T-wave inversions in septal leads. Patient admitted for further workup. Echocardiogram shows large pericardial effusion with diastolic collapse of the right atrium. Cardiology and cardiothoracic surgery consulted. Status post pericardial window with removal of 700 mL serosanguineous pericardial fluid. Currently has a chest tube in place. Plan today, the chest tube today. Repeat echocardiogram pending. Subjective: Patient seen and examined at bedside. No acute events overnight. Pertinent positives and negatives as discussed above, a complete review of systems was performed and all other systems are negative. Vitals Signs Reviewed. General: nontoxic, no distress, appears at stated age Derm: warm, dry, chest tube site clean, dry, intact Head: atraumatic, normocephalic, symmetric Eyes: EOMI, no lid lag, anicteric sclera Mouth: no lip lesion, mucus membranes moist Cardiovascular: S1S2 reg, no murmur Lungs: CTA bilateral, no rhonchi, no rales , no accessory muscle use Abdominal: soft, nontender to palpation, no guarding, no appreciable organomegaly Ext: no gross muscle atrophy, no edema, no contractures Neuro: CN II-XI grossly intact, no focal neuro deficits Psych: Alert, oriented, appropriate affect Data Reviewed Today: Pertinent Labs: Hemoglobin 10.3, platelet 484 Imaging: Chest x-ray independently interpreted, shows no acute process, heart size reduced Assessment and Plan: Active: Large Pericardial effusion, early tamponade status post pericardial window Hemopericardium Exertional dyspnea Anemia, unknown baseline, normocytic, stable Daily alcohol use -Cardiology note reviewed, on colchicine 0.6 mg twice a day, and indomethacin 25 mg 3 times a day -Cardiothoracic surgery note reviewed, chest tube removal today, pending echocardiogram -Cytology, and cultures pending -Monitor for alcohol withdrawal Chronic: Hypertension GERD DVT ppx: Subcu heparin Code status: Full code Anticipated discharge place: Pending clinical course Anticipated discharge time: Pending clinical course Objective - Vital Signs Vital signs: Vital Signs Temp 97.8 F 03/09/23 12:00 Pulse 82 03/09/23 12:00 Resp 16 03/09/23 12:00 BP 154/80 03/09/23 12:00 Pulse Ox 95 03/09/23 12:00 FiO2 21 03/09/23 08:19 Intake & Output 03/08/23 03/09/23 03/09/23 18:59 06:59 18:59 Intake Total 480 480 Output Total 0 520 0 Balance 480 -40 0 Intake: Oral 480 480 Output: Chest Tube Drainage 0 20 0 Chest Tube Right 0 20 0 Urine 500 Other: Voiding Method Toilet Toilet Toilet - Labs CBC & Chem 7: 03/09/23 08:11 03/08/23 08:13 Labs: Abnormal Lab Results - Last 24 Hours (Table) 03/09/23 Range/Units 08:11 RBC 3.68 L (4.30-5.90) m/uL Hgb 10.3 L (13.0-17.5) gm/dL Hct 33.9 L (39.0-53.0) % MCHC 30.6 L (31.0-37.0) g/dL Plt Count 484 H (150-450) k/uL Microbiology - Last 24 Hours (Table) 03/07/23 14:20 Anaerobic Culture - Preliminary Pericardial Fluid 03/07/23 14:20 Acid Fast Bacilli Smear - Preliminary Pericardial Fluid 03/07/23 14:20 Gram Stain - Preliminary Pericardial Fluid Body Fluid Culture - Preliminary
[2023-03-09] MEDS: PANTOPRAZOLE 40 MG TABLET PO SCH (16:25)
--- NOTE | 2023-03-10 07:03 | CA ---
Transthoracic Echo Report Name: Torrey Harden Age: 67 Gender: M : 1955 Exam Date: 03/09/2023 14:14 Exam Location: [place] [facility] Ht (in): 72 Wt (lb): 272 Ordering Physician: Mercy Weber Attending/Referring Phys: [id number], Tia Chronic Condition Nurse Patti Landers [facility] Procedure CPT: Indications: pericardial effusion, s/p window Cardiac Hx: Technical Quality: Technically difficult study Contrast 1: Total Dose (mL): Contrast 2: Total Dose (mL): MEASUREMENTS (Male / Female) Normal Values 2D ECHO LV Systolic Diameter PLAX 4.1 cm IVS Diastolic Thickness 0.9 cm 0.6 - 1.0 / 0.6 - 0.9 cm LVPW Diastolic Thickness 1.3 cm 0.6 - 1.0 / 0.6 - 0.9 cm DOPPLER LV E' Lateral Velocity 9.8 cm/s LV E' Septal Velocity 10.7 cm/s Right Atrial Pressure 8.0 mmHg FINDINGS Left Ventricle Mildly increased left ventricular wall thickness. Left ventricular cavity size normal. Normal left ventricular wall motion. Left ventricular ejection fraction is estimated at 55-60 %. Right Ventricle Right Atrium Left Atrium Mitral Valve Aortic Valve Tricuspid Valve Pulmonic Valve Pericardium Trace pericardial effusion. Aorta CONCLUSIONS Limited for effusion, S/P pericardial window. Normal left ventricular size and systolic function No significant pericardial effusion Previewed by: Dr. Lizeth Reddy MD (Electronically Signed) Final Date: 10 March 2023 07:03
[2023-03-10 09:06] VITALS: BP 141/77; PULSE 75; RESP 18; TEMP 98.1
--- NOTE | 2023-03-10 09:06 | P.PN ---
Subjective Progress Note Date: 03/10/23 Principal diagnosis: Large pericardial effusion, early tamponade, anemia. Past medical history significant for hypertension, GERD, questionable sleep apnea, daily EtOH use, previous tobacco dependence. POD #3 subxiphoid pericardial window with removal of 700 mL pericardial fluid. The patient was seen and examined in follow-up today 03/10/2023 at his bedside on the third floor cardiac stepdown unit. He is sitting up to bedside edge, is awake, alert, oriented 3 and is in no acute apparent distress. He denies any complaints of shortness of breath or pain at this time. He reports he has been up ambulating in the cardiac stepdown unit hallway independently without diffi culty. Oxygen saturations are 97% on room air and he is achieving 3000 mL on his incentive spirometry with encouragement. Remote telemetry showing normal sinus rhythm heart rate 73 BPM. Transthoracic 2-D echocardiogram results yesterday showed a normal left ventricular wall motion, left ventricular ejection fraction estimated at 55-60% and no significant pericardial effusion. His subxiphoid chest tube was removed yesterday without incident. Dressing to his chest tube insertion site remains clean dry and intact. He has been afebrile the last 24 hours. Chest x-ray results reviewed. Objective - Vital Signs Vital signs: Vital Signs Temp 98.1 F 03/10/23 08:00 Pulse 75 03/10/23 08:00 Resp 18 03/10/23 08:00 BP 141/77 03/10/23 08:00 Pulse Ox 97 03/10/23 08:00 FiO2 21 03/09/23 08:19 Intake & Output 03/09/23 03/10/23 03/10/23 18:59 06:59 18:59 Output Total 0 Balance 0 Weight 100.2 kg Output: Chest Tube Drainage 0 Chest Tube Right 0 Other: Voiding Method Toilet Toilet # Voids 1 - Exam CONSTITUTIONAL: Appears comfortable, cooperative, no acute distress. RESPIRATORY: Lungs sounds clear throughout bilaterally. Respirations are symmetrical, nonlabored. Currently on room air with oxygen saturation 97%. Able to achieve 3000 mL on his incentive spirometry. Strong cough. CARDIOVASCULAR: S1, S2 present. Regular rate and rhythm, sinus rhythm on telemetry. Palpable peripheral pulses bilaterally. No edema present. No calf pain or tenderness noted. GASTROINTESTINAL: Abdomen soft, nontender, nondistended. Active bowel sounds present 4 quadrants. Tolerating diet. Bowel movement this a.m. GENITOURINARY: Continues to void. INTEGUMENTARY: Skin is warm and dry. NEUROLOGIC: Cranial nerves II through XII intact. No focal deficits. MUSKULOSKELETAL: Able to move all extremities, strength equal bilaterally, gait normal. PSYCHIATRIC: Alert and oriented to person place and time, appropriate affect, intact judgment and insight. - Labs CBC & Chem 7: 03/09/23 08:11 03/08/23 08:13 Labs: Microbiology - Last 24 Hours (Table) 03/07/23 14:20 Gram Stain - Preliminary Pericardial Fluid Body Fluid Culture - Preliminary 03/07/23 14:20 Anaerobic Culture - Preliminary Pericardial Fluid - Imaging and Cardiology Chest x-ray: report reviewed, image reviewed Assessment and Plan Assessment: Large pericardial effusion, early tamponade, status post subxiphoid pericardial window Anemia, unknown source Shortness of breath secondary to above History of hypertension GERD Questionable sleep apnea Daily EtOH use Previous tobacco dependence Plan: Per the cardiothoracic surgery standpoint when okay with primary care and other consultants. Encourage incentive spirometer 10 times every hour while awake. Increase activity, ambulate as tolerated. Continue colchicine, indocin. Medical management of other comorbidities per internal medicine, cardiology. Transthoracic 2-D echocardiogram results yesterday showed a normal left ventricular wall motion, left ventricular ejection fraction estimated at 55-60% and no significant pericardial effusion. Pericardial fluid cytology and pericardium biopsy results remain pending. We will continue to follow the patient on an as-needed basis. Time with Patient: Less than 30
[2023-03-10] MEDS: HEPARIN SODIUM,PORCINE 5,000 UNIT/ML 1 ML VIAL SQ SCH (09:11)
[2023-03-10] MEDS: COLCHICINE 0.6 MG EACH PO SCH (09:12)
[2023-03-10] MEDS: VALSARTAN 160 MG TAB PO SCH (09:12)
[2023-03-10] MEDS: INDOMETHACIN 25 MG CAP PO SCH (09:12)
[2023-03-10] MEDS: hydroCHLOROthiazide 25 MG TAB PO SCH (09:12)
--- NOTE | 2023-03-10 09:16 | XR ---
EXAMINATION TYPE: XR chest 2V DATE OF EXAM: 03/10/2023 COMPARISON: 03/09/2023 TECHNIQUE: PA and lateral views submitted. HISTORY: Post pericardial window FINDINGS: A pericardial catheter previously noted is not as well seen on today's exam. Small amount of pneumome diastinum or pneumopericardium suspected. Heart is mildly enlarged and stable in size. Underlying SOURCING MANAGER D. Biapical pleural thickening with no pneumothorax or focal pneumonia. Tiny pleural effusions suspec moises. IMPRESSION: 1. COPD. Heart size is unchanged in appearance.
--- NOTE | 2023-03-10 11:22 | P.DS ---
Providers Date of admission: 03/05/23 18:01 Expected date of discharge: 03/10/23 Attending physician: Caroline Iqbal MD Consults: 03/05/23 17:49 Consult Physician Routine Consulting Provider: Lizeth Reddy Consult Reason/Comments: pericardialEffusion Do you want consulting provider notified?: Yes 03/06/23 10:38 Consult Physician Routine Consulting Provider: Shaka Curry Consult Reason/Comments: pericardial effusion, symptomatic Do you want consulting provider notified?: Yes Primary care physician: Stef Hernandez [facility] Course: Discharge Diagnosis: Large Pericardial effusion, early tamponade status post pericardial window Hemopericardium Acute pericarditis Exertional dyspnea Anemia, unknown baseline, normocytic, stable Daily alcohol use Hypertension GERD Hospital Course: 67-year-old male with hypertension presenting with progressive shortness of breath, and exertional dyspnea. Vital signs have been within normal limits. Laboratory tests showed normocytic anemia at 8.9, d-dimer 3.25, creatinine 0.92, proBNP 400, troponin 0.017, respiratory viral panel negative. CTA chest showed moderate-sized pericardial effusion, no PE. EKG shows T-wave inversions in septal leads. Patient admitted for further workup. Echocardiogram shows large pericardial effusion with diastolic collapse of the right atrium. Cardiology and cardiothoracic surgery consulted. Status post pericardial window with removal of 700 mL serosanguineous pericardial fluid. Had a chest tube placed which has now been removed. Repeat echocardiogram shows no significant pericardial effusion. Cytology and pericardial biopsy pathology still pending. No growth noted on pericardial fluid culture. Patient being discharged on colchicine. Follow-up with cardiology outpatient. Patient seen and examined at bedside. Vital signs reviewed and stable. General: nontoxic, no distress, appears at stated age Derm: warm, dry Head: atraumatic, normocephalic, symmetric Eyes: EOMI, no lid lag, anicteric sclera Mouth: no lip lesion, mucus membranes moist Cardiovascular: S1S2 reg, no murmur Lungs: CTA bilateral, no rhonchi, no rales , no accessory muscle use Abdominal: soft, nontender to palpation, no guarding, no appreciable organomegaly Ext: no gross muscle atrophy, no edema, no contractures Neuro: CN II-XI grossly intact, no focal neuro deficits Psych: Alert, oriented, appropriate affect A total of 36 minutes of time were spent preparing this complex discharge summary. Patient was discharged on 03/10/23 at 11:12. Patient Condition at Discharge: Stable Plan - Discharge Summary Discharge Rx Participant: No New Discharge Prescriptions: New Colchicine [Colcrys] 0.6 mg PO BID #60 each Thiamine [Vitamin B-1] 100 mg PO DAILY #30 tablet Continue Valsartan/Hydrochlorothiazide [Valsartan-Hctz 320-25 mg Tab] 1 tab PO DAILY Omeprazole 20 mg PO DAILY@1600 Discharge Medication List Valsartan/Hydrochlorothiazide [Valsartan-Hctz 320-25 mg Tab] 1 tab PO DAILY 09/26/22 [History] Omeprazole 20 mg PO DAILY@1600 03/05/23 [History] Colchicine [Colcrys] 0.6 mg PO BID #60 each 03/10/23 [Rx] Thiamine [Vitamin B-1] 100 mg PO DAILY #30 tablet 03/10/23 [Rx] Follow up Appointment(s)/Referral(s): Stef Herrera MD [Primary Care Provider] - 1-2 days Jack Maldonado MD [STAFF PHYSICIAN] - 1 Week Patient Instructions/Handouts: Acute Pericarditis (DC) Activity/Diet/Wound Care/Special Instructions: Please see your PCP and regrader. Discharge Disposition: HOME SELF-CARE
--- NOTE | 2023-03-10 13:23 | PN ---
PROGRESS NOTE SUBJECTIVE: This gentleman came in with a pericardial effusion, moderate to large with shortness of breath, had a window procedure. Repeat echo revealed very little effusion if any. The patient feels a lot better. The study so far, which are not complete yet, suggests only inflammatory process. Gram stain is negative. Acid-fast stain is negative. Cultures are pending. LDH level is high suggestive of inflammatory process. The patient feels well. I am going to discharge him on colchicine 0.6 mg b.i.d. He will follow up in the office in 7-[address] Maldonado. OBJECTIVE: VITALS: Stable. NECK: No JVD. HEART: S1, S2 heard normally. No rub is audible. LUNGS: Clear. ABDOMEN: Unchanged. EXTREMITIES: Lower extremities are unchanged. The epigastric window site looks clean and dry. The patient can be discharged today. MMODL / IJN: [id number] /
== END 2023-03-10 12:38 | disposition home or self-care (01) | DRG 271 ==
LOC: EC 13:52 → 3SCARD 18:01
PROVIDERS: ADMIT Internal Medicine; ATTEND Internal Medicine
PROC: 02BN0ZX Excision of Pericardium, Open Approach, Diagnostic (ICD-10-PCS; principal; 2023-03-07 07:30)
PROC: 0W9D00Z Drainage of Pericardial Cavity with Drainage Device, Open Approach (ICD-10-PCS; principal; 2023-03-07 07:30)
DX: I30.9 Acute pericarditis, unspecified (principal); I31.2 Hemopericardium, not elsewhere classified; I31.4 Cardiac tamponade; I11.9 Hypertensive heart disease without heart failure; J44.9 Chronic obstructive pulmonary disease, unspecified; Z20.822 Contact with and (suspected) exposure to COVID-19; F10.90 Alcohol use, unspecified, uncomplicated; D50.9 Iron deficiency anemia, unspecified; K21.9 Gastro-esophageal reflux disease without esophagitis; K57.30 Diverticulosis of large intestine without perforation or abscess without bleeding; K44.9 Diaphragmatic hernia without obstruction or gangrene; K29.70 Gastritis, unspecified, without bleeding; Z79.899 Other long term (current) drug therapy; Z87.891 Personal history of nicotine dependence; Z88.0 Allergy status to penicillin; Z88.1 Allergy status to other antibiotic agents
CPT/HCPCS: 36415; 71045; 71046; 71275; 80048; 80053; 81003; 82150; 82945; 83615; 83735; 83880; 84100; 84443; 84484; 85025; 85379; 85610; 85730; 86850; 86900; 86901; 87070; 87075; 87102; 87116; 87205; 87206; 87636; 88108; 88305; 89050; 93005; 93306; 93308; 94760; 99291